=== PATIENT | male | born 1965 | race African-American/Black ===

== ENCOUNTER 2018-02-28 08:53 | Inpatient (IN) | payer SELFPAY ==
[2018-02-28] MEDS ORDERED: TRAMADOL HCL 50 MG TAB PO PRN (10:01)
[2018-02-28] MEDS ORDERED: MORPHINE 2 MG/ML SYR IV PRN (10:01)
[2018-02-28] MEDS ORDERED: ACETAMINOPHEN 500 MG TAB PO PRN (10:01)
[2018-02-28] MEDS ORDERED: ONDANSETRON 4 MG/2 ML VIAL IV PRN (10:01)
--- NOTE | 2018-02-28 10:04 | ER ---
Nurse's Notes [facility] Name: Darrick Conde Age: 52 yrs Sex: Male : 1965 Arrival Date: 02/28/2018 Time: 08:55 Bed 19 Private MD: Diagnosis: Cellulitis of left lower limb Presentation: 02/28 09:05 Presenting complaint: Patient states: left ankle radiating up leg that began yesterday. aa5 Denies swelling, denies known injury. Transition of care: patient was not received from another setting of care. Onset of symptoms was February 2018. Risk Assessment: Do you want to hurt yourself or someone else? Patient reports no desire to harm self or others. Initial Sepsis Screen: Does the patient meet any 2 criteria? No. Patient's initial sepsis screen is negative. Does the patient have a suspected source of infection? No. Patient's initial sepsis screen is negative. Care prior to arrival: None. 09:05 Method Of Arrival: Ambulatory aa5 09:05 Acuity: TA 3 aa5 Triage Assessment: 09:30 General: Appears in no apparent distress. uncomfortable, Behavior is calm, cooperative, hj appropriate for age. Pain: Complains of pain in left leg and anterior aspect of left ankle and left melo and left medial ankle Pain currently is 9 out of 10 on a pain scale. EENT: No signs and/or symptoms were reported regarding the EENT system. Neuro: Level of Consciousness is awake, alert, obeys commands, Oriented to person, place, time, situation, Appropriate for age. Cardiovascular: Capillary refill < 3 seconds Patient's skin is warm and dry. Respiratory: Airway is patent Respiratory effort is even, unlabored, Respiratory pattern is regular, symmetrical. GI: No signs and/or symptoms were reported involving the gastrointestinal system. : No signs and/or symptoms were reported regarding the genitourinary system. Derm: swelling and warmth to touch L leg; Reports pain that is 9 out of 10 on a pain scale. Musculoskeletal: Reports pain in left leg. Historical: - Allergies: 09:07 No Known Allergies; aa5 - Home Meds: 09:07 None [Active]; aa5 - PMHx: 09:07 None; aa5 - PSHx: 09:07 None; aa5 - Immunization history:: Adult Immunizations up to date. - Social history:: Smoking status: Patient/guardian denies using tobacco. - Ebola Screening: : No symptoms or risks identified at this time. Screenin:30 Abuse screen: Denies threats or abuse. Denies injuries from another. Nutritional hj screening: No deficits noted. Tuberculosis screening: No symptoms or risk factors identified. Fall Risk Secondary diagnosis (15 points) leg pain and swelling. Assessment: 09:30 Reassessment: see anjel for assessment;. hj 10:46 Reassessment: Patient and/or family updated on plan of care and expected duration. Pain hj level reassessed. Patient is alert, oriented x 3, equal unlabored respirations, skin warm/dry/pink. US tech in room for leg USl;. Vital Signs: 09:07 BP 132 / 86; Pulse 94; Resp 20 S; Temp 97.4(TE); Pulse Ox 98% on R/A; Weight 136.08 kg aa5 (R); Height 5 ft. 11 in. (180.34 cm) (R); Pain 9/10; 09:07 Body Mass Index 41.84 (136.08 kg, 180.34 cm) aa5 ED Course: 08:55 Patient arrived in ED. rg4 09:06 Triage completed. aa5 09:06 Arm band placed on. aa5 09:15 Kourtney Ambrosio FNP-C is PSYCHIATRICP. snw 09:15 Trevon Martines MD is Attending Physician. snw 09:22 Ace Cesar RN is Primary Nurse. hj 09:30 Patient has correct armband on for positive identification. Placed in gown. Bed in low hj position. Call light in reach. Side rails up X 1. 09:58 EKG done, by coding technician. reviewed by Kourtney ADAME. dt2 10:03 Francesco Westbrook DO is Hospitalizing Provider. snw 10:05 Inserted saline lock: 22 gauge in left antecubital area, using aseptic technique. Blood hj collected. 10:05 Initial lab(s) drawn, by me, sent to lab. First set of blood cultures drawn by me. hj 10:10 Radiology exam delayed due to NURSE TO CALL U/S WHEN PT IS READY. hr 10:17 X-ray completed. Portable x-ray completed in exam room. Patient tolerated procedure sw well. 10:20 Second set of blood cultures drawn. hj 10:48 Ultrasound completed. Patient tolerated well. hr 11:31 No provider procedures requiring assistance completed. Patient admitted, IV remains in hj place. intact. Administered Medications: 10:01 CANCELLED (other intervention used): Clindamycin 600 mg IVPB once over 30 mins; (mix in snw 50 mL) 10:35 Drug: Phenergan 12.5 mg Route: IVP; Site: left antecubital; hj 11:22 Follow up: Response: No adverse reaction; Nausea is decreased hj 10:36 Drug: NS 0.9% (30 ml/kg) 30 ml/kg Route: IV; Rate: bolus; Site: left antecubital; hj 11:32 Follow up: IV Status: Infusion continued upon admission; IV Intake: 3000ml hj 10:36 Drug: morphine 4 mg Route: IVP; Site: left antecubital; hj 11:23 Follow up: Response: No adverse reaction; Pain is decreased hj 10:36 Drug: Zosyn 3.375 grams Route: IVPB; Infused Over: 60 mins; Site: left antecubital; hj 11:22 Follow up: IV Status: Completed infusion hj 11:03 Drug: Potassium Chloride 40 mEq Route: PO; hj 11:22 Follow up: Response: No adverse reaction hj 11:23 Not Given (relayed to start on the floor upon admit;): vancoMYCIN 1 grams IVPB once hj over 2 hrs Point of Care Testing: Blood Glucose: 09:30 Blood Glucose: 154 mg/dL; Ranges: Intake: 11:32 IV: 3000ml; Total: 3000ml. Outcome: 10:04 Decision to Hospitalize by Provider. snw 11:31 Admitted to Tele accompanied by tech, via wheelchair, room 404, with chart, Report hj called to ANTONY Castro 11:31 Condition: stable 11:31 Instructed on the need for admit, Demonstrated understanding of instructions. 11:32 Patient left the ED. Signatures: Kourtney Ambrosio, AGRICULTURAL PRODUCE PACKER-C AGRICULTURAL PRODUCE PACKER-Csnw Sisi Beckwith Audri RN RN aa5 Isa Mccullough Henry, RN RN hj Garcia, Rubi rg4 Tessy Uribe
--- NOTE | 2018-02-28 10:04 | EDPHYS ---
Physician Documentation [facility] Name: Darrick Conde Age: 52 yrs Sex: Male : 1965 Arrival Date: 02/28/2018 Time: 08:55 Bed 19 Private MD: ED Physician Trevon Martines HPI: 02/28 09:47 This 52 yrs old Black Male presents to ER via Ambulatory with complaints of Leg Pain. snw 09:47 The patient presents with decreased range of motion, pain, swelling, redness and warmth snw to left lower leg. Associated signs and symptoms: Pertinent positives: swelling, warmth, leg feels on fire. Severity of symptoms: At their worst the symptoms were moderate, severe. The patient has not experienced similar symptoms in the past. The patient has not recently seen a physician. states 2 days ago he had a stomach virus and then his left ankle began hurting, swelling, no trauma. Historical: - Allergies: 09:07 No Known Allergies; aa5 - Home Meds: 09:07 None [Active]; aa5 - PMHx: 09:07 None; aa5 - PSHx: 09:07 None; aa5 - Immunization history:: Adult Immunizations up to date. - Social history:: Smoking status: Patient/guardian denies using tobacco. - Ebola Screening: : No symptoms or risks identified at this time. ROS: 09:47 Constitutional: Negative for fever, chills, and weight loss, Eyes: Negative for injury, snw pain, redness, and discharge, ENT: Negative for injury, pain, and discharge, Neck: Negative for injury, pain, and swelling, Cardiovascular: Negative for chest pain, palpitations, and edema, Respiratory: Negative for shortness of breath, cough, wheezing, and pleuritic chest pain, Back: Negative for injury and pain, : Negative for injury, bleeding, discharge, and swelling, Skin: Negative for injury, rash, and discoloration, Neuro: Negative for headache, weakness, numbness, tingling, and seizure. 09:47 Abdomen/GI: Positive for nausea, vomiting, and diarrhea. 09:47 MS/extremity: Positive for pain, swelling, tenderness, warmth, of the anterior aspect of left ankle and left medial ankle. Exam: 09:46 Constitutional: This is a well developed, well nourished patient who is awake, alert, snw and in no acute distress. Head/Face: Normocephalic, atraumatic. Eyes: Pupils equal round and reactive to light, extra-ocular motions intact. Lids and lashes normal. Conjunctiva and sclera are non-icteric and not injected. Cornea within normal limits. Periorbital areas with no swelling, redness, or edema. ENT: Nares patent. No nasal discharge, no septal abnormalities noted. Tympanic membranes are normal and external auditory canals are clear. Oropharynx with no redness, swelling, or masses, exudates, or evidence of obstruction, uvula midline. Mucous membranes moist. Neck: Trachea midline, no thyromegaly or masses palpated, and no cervical lymphadenopathy. Supple, full range of motion without nuchal rigidity, or vertebral point tenderness. No Meningismus. Chest/axilla: Normal chest wall appearance and motion. Nontender with no deformity. No lesions are appreciated. Cardiovascular: Regular rate and rhythm with a normal S1 and S2. No gallops, murmurs, or rubs. Normal PMI, no JVD. No pulse deficits. Respiratory: Lungs have equal breath sounds bilaterally, clear to auscultation and percussion. No rales, rhonchi or wheezes noted. No increased work of breathing, no retractions or nasal flaring. Back: No spinal tenderness. No costovertebral tenderness. Full range of motion. Neuro: Awake and alert, GCS 15, oriented to person, place, time, and situation. Cranial nerves II-XII grossly intact. Motor strength 5/5 in all extremities. Sensory grossly intact. Cerebellar exam normal. Normal gait. Psych: Awake, alert, with orientation to person, place and time. Behavior, mood, and affect are within normal limits. 09:46 Abdomen/GI: Inspection: obese Bowel sounds: normal, Palpation: abdomen is soft and non-tender. 09:46 Skin: Appearance: normal except for affected area, cellulitis, that is moderate, confluent, on the left medial ankle, left melo and anterior aspect of left ankle. Vital Signs: 09:07 BP 132 / 86; Pulse 94; Resp 20 S; Temp 97.4(TE); Pulse Ox 98% on R/A; Weight 136.08 kg aa5 (R); Height 5 ft. 11 in. (180.34 cm) (R); Pain 03/04; 09:07 Body Mass Index 41.84 (136.08 kg, 180.34 cm) aa5 MDM: 09:15 Patient medically screened. snw 09:50 Data reviewed: vital signs, nurses notes. Data interpreted: Pulse oximetry: on room air snw is 98 %. Interpretation: normal. Counseling: I had a detailed discussion with the patient and/or guardian regarding: the historical points, exam findings, and any diagnostic results supporting the discharge/admit diagnosis, the presence of at least one elevated blood pressure reading (>120/80) during this emergency department visit, the need for further work-up and treatment in the hospital. Physician consultation: Francesco Westbrook DO was called at 09:50, was contacted at 09:50, regarding admission, to the medical/surgical unit. 02/28 09:45 Order name: Basic Metabolic Panel; Complete Time: 10:59 snw 02/28 09:45 Order name: Blood Culture Adult (2) snw 02/28 09:45 Order name: C-Reactive Protein; Complete Time: 10:59 snw 02/28 09:45 Order name: CBC with Diff; Complete Time: 11:31 snw 02/28 09:45 Order name: Ckmb; Complete Time: 10:59 snw 02/28 09:45 Order name: CPK; Complete Time: 10:59 snw 02/28 09:45 Order name: Lactate; Complete Time: 10:41 snw 02/28 09:45 Order name: LFT's; Complete Time: 10:59 snw 02/28 09:45 Order name: Procalcitonin; Complete Time: 11:31 snw 02/28 09:45 Order name: Protime (+inr); Complete Time: 10:42 snw 02/28 09:45 Order name: Ptt, Activated; Complete Time: 10:42 snw 02/28 09:45 Order name: Sed Rate; Complete Time: 11:31 snw 02/28 09:45 Order name: Uric Acid; Complete Time: 10:59 snw 02/28 10:07 Order name: Basic Metabolic Panel EDMS 02/28 10:07 Order name: Basic Metabolic Panel EDMS 02/28 10:07 Order name: Basic Metabolic Panel EDMS 02/28 10:07 Order name: Basic Metabolic Panel EDMS 02/28 10:07 Order name: Basic Metabolic Panel EDMS 02/28 10:07 Order name: Basic Metabolic Panel EDMS 02/28 10:07 Order name: CBC with Automated Diff EDMS 02/28 10:07 Order name: CBC with Automated Diff EDMS 02/28 10:07 Order name: CBC with Automated Diff EDMS 02/28 10:07 Order name: CBC with Automated Diff EDMS 02/28 10:07 Order name: CBC with Automated Diff EDMS 02/28 10:07 Order name: CBC with Automated Diff EDMS 02/28 10:07 Order name: Magnesium EDMS 02/28 10:07 Order name: Magnesium EDMS 02/28 10:07 Order name: Magnesium EDMS 02/28 10:07 Order name: Magnesium EDMS 02/28 10:07 Order name: Magnesium EDMS 02/28 09:45 Order name: Accucheck; Complete Time: 10:11 snw 02/28 09:45 Order name: Cardiac monitoring; Complete Time: 09:51 snw 02/28 09:45 Order name: EKG - Nurse/Tech; Complete Time: 10:11 snw 02/28 09:45 Order name: IV Saline Lock - Large Bore; Complete Time: 10:11 snw 02/28 09:45 Order name: Labs collected and sent; Complete Time: 10:11 snw 02/28 09:45 Order name: O2 Per Protocol; Complete Time: 09:47 snw 02/28 09:45 Order name: O2 Sat Monitoring; Complete Time: 09:47 snw 02/28 09:45 Order name: US Extremity Venous Unilateral Ltd snw 02/28 10:02 Order name: Tib Fib Left XRAY snw 02/28 10:06 Order name: CONS Pharmacy Consult EDMS 02/28 10:07 Order name: Regular EDMS 02/28 10:07 Order name: Magnesium EDMS 02/28 11:03 Order name: US; Complete Time: 11:03 EDMS 02/28 11:31 Order name: RAD; Complete Time: 11:31 EDMS Administered Medications: 10:01 CANCELLED (other intervention used): Clindamycin 600 mg IVPB once over 30 mins; (mix in snw 50 mL) 10:35 Drug: Phenergan 12.5 mg Route: IVP; Site: left antecubital; hj 11:22 Follow up: Response: No adverse reaction; Nausea is decreased hj 10:36 Drug: NS 0.9% (30 ml/kg) 30 ml/kg Route: IV; Rate: bolus; Site: left antecubital; hj 11:32 Follow up: IV Status: Infusion continued upon admission; IV Intake: 3000ml hj 10:36 Drug: morphine 4 mg Route: IVP; Site: left antecubital; hj 11:23 Follow up: Response: No adverse reaction; Pain is decreased hj 10:36 Drug: Zosyn 3.375 grams Route: IVPB; Infused Over: 60 mins; Site: left antecubital; hj 11:22 Follow up: IV Status: Completed infusion hj 11:03 Drug: Potassium Chloride 40 mEq Route: PO; hj 11:22 Follow up: Response: No adverse reaction hj 11:23 Not Given (relayed to start on the floor upon admit;): vancoMYCIN 1 grams IVPB once hj over 2 hrs Point of Care Testing: Blood Glucose: 09:30 Blood Glucose: 154 mg/dL; Ranges: Critical Glucose Levels:Adult <50 mg/dl or >400 mg/dl <40 mg/dl or >180 mg/dl Disposition: 13:57 Co-signature as Attending Physician, Trevon Martines MD I agree with the assessment and kdr plan of care. Disposition: 02/28/18 10:04 Hospitalization ordered by Francesco Westbrook for Inpatient Admission. Preliminary diagnosis is Cellulitis of left lower limb. - Bed requested for Telemetry/MedSurg (Inpatient). - Status is Inpatient Admission. hj - Condition is Stable. - Problem is new. - Symptoms are unchanged. UTI on Admission? No Signatures: Dispatcher [employer] EDMS Avril Young Kevin, MD MD [facility] Kourtney Ambrosio, WORKFORCE MANAGEMENT COORDINATOR-C WORKFORCE MANAGEMENT COORDINATOR-Csnw Jesika Vaughn RN RN aa5 Ace Cesar, ANTONY RN Corrections: (The following items were deleted from the chart) 10:01 09:45 Clindamycin 600 mg IVPB once over 30 mins; (mix in 50 mL) ordered. snw snw 10:01 10:01 Clindamycin 600 mg IVPB once over 30 mins; (mix in 50 mL) ordered. snw snw 11:08 10:04 Hospitalization Ordered by Francesco Westbrook DO for Inpatient Admission. Preliminary bd diagnosis is Cellulitis of left lower limb. Bed requested for Telemetry/MedSurg (Inpatient). Status is Inpatient Admission. Condition is Stable. Problem is new. Symptoms are unchanged. UTI on Admission? No. snw 11:32 11:08 02/28/2018 10:04 Hospitalization Ordered by Francesco Westbrook DO for Inpatient hj Admission. Preliminary diagnosis is Cellulitis of left lower limb. Bed requested for Telemetry/MedSurg (Inpatient). Status is Inpatient Admission. Condition is Stable. Problem is new. Symptoms are unchanged. UTI on Admission? No. bd
[2018-02-28] MEDS ORDERED: PROMETHAZINE 25 MG/ML VIAL ONE (10:27)
[2018-02-28] MEDS ORDERED: PIPER/TAZO/NS 3.375gm 3.375 GM/100 ML BAG ONE (10:28)
[2018-02-28] MEDS ORDERED: NA CHLORIDE 0.9% 3,000 ML ONE (10:28)
[2018-02-28] MEDS ORDERED: VANCOMYCIN 1 GM/250 ML BAG ONE (10:28)
[2018-02-28] MEDS ORDERED: MORPHINE 4 MG/ML SYR ONE (10:28)
[2018-02-28 10:32] LABS: Protime INR 1.3
[2018-02-28 10:44] LABS: Absolute Lymphocytes (CBC) 1.2 K/uL (0.7-4.9); Absolute Monocytes 1.3 K/uL (0.1-1.3); Absolute Neutrophil 8.3 K/uL (1.8-8.0); Basophils % 0.2 % (0-1.3); Eosinophils % 0.3 % (0-4.4); Lymphocytes % 11.3 % (15.3-44.8); MCV 91.9 fL (80-100); MPV 7.2 fL (7.6-11.3); Monocytes % 12.2 % (3.3-12.3); RBC Red Blood Cell Count 4.35 M/uL (4.33-5.43)
[2018-02-28 10:55] LABS: Albumin 3.1 g/dL (3.4-5.0); Bilirubin Direct 0.2 mg/dL (0-0.2); Bilirubin Total 0.8 mg/dL (0.2-1.0); CKMB Creatine Kinase MB 1.3 ng/mL (0.3-3.6); Protein, Total 7.7 g/dL (6.4-8.2)
[2018-02-28] MEDS: NA CHLORIDE 0.9% 1,000 ML IV SCH ×3 (11:00→20:54)
--- NOTE | 2018-02-28 11:02 | RAD REPORT ---
EXAM DESCRIPTION: US - Extremity Venous Uni Ltd - 02/28/2018 10:51 am CLINICAL HISTORY: Swelling;Pain Leg swelling and edema. COMPARISON: No comparisons FINDINGS: Left lower extremity venous system was interrogated with Doppler technique. Normal flow, c ompressibility and augmentation was noted. There is no DVT present.3 x 2 cm popliteal cyst. IMPRESSION: No evidence of left lower extremity deep venous thrombosis.
[2018-02-28] MEDS ORDERED: POTASSIUM CL SA 10 MEQ TAB PO ONE (11:16)
--- NOTE | 2018-02-28 11:22 | P.HP ---
Certification for Inpatient Patient admitted to: Inpatient With expected LOS: >2 Midnights Patient will require the following post-hospital care: None Practitioner: I am a practitioner with admitting privileges, knowledge of patient current condition, hospital course, and medical plan of care. Services: Services provided to patient in accordance with Admission requirements found in Title 42 Section 412.3 of the Code of Federal Regulations Patient History Date of Service: 02/28/18 Primary Care Provider: None Reason for admission: Left lower extremity pain, edema History of Present Illness: 52-year-old male presented to the emergency room with left lower extremity pain and edema. Patient reports that he started to notice increasing edema, pain and erythema to the left lower extremity yesterday. He denied any fever, chills. No nausea vomiting noted. No chest pain or shortness of breath also noted. Patient reports no recent exposure to insects. Patient came to the ER for further evaluation. In the ER patient evaluated. Erythema noted to the left lower extremity including edema. White count elevated at 11.6, hemoglobin 13.9, sodium 138, potassium 3.0. BUN of 13, creatinine 1.4 with a GFR of 64. Glucose 150. Lactic acid normal. CRP elevated. Pro calcitonin pending. Venous Doppler of the lower extremity unremarkable for DVT. A 3 x 2 cm popliteal cyst noted. X- rays pending at this time. Patient admitted for further treatment. When I saw the patient the ER, patient had noticeable erythema, swelling to the left lower extremity. No open areas were noted. Pain better controlled. Patient has no prior medical problems. Patient is obese. Allergies No Known Allergies Allergy (Unverified 02/28/18 10:25) Home medications list reviewed: No - Past Medical/Surgical History Diabetic: No -: Obesity Past Surgical History: Patient denies surgical history Psychosocial/ Personal History: Patient is single. He has 2 children. 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 - Family History Mother -: Cancer (Cancer of unknown etiology likely ovarian and lung.) - Social History Smoking Status: Never smoker Alcohol use: Yes CD- Drugs: No Caffeine use: No Place of Residence: Home Review of Systems General: As per HPI Eyes: Unremarkable ENT: Unremarkable Respiratory: Unremarkable Cardiovascular: Unremarkable Gastrointestinal: Unremarkable Genitourinary: Unremarkable Musculoskeletal: Leg Pain, As per HPI Integumentary: As per HPI Neurological: Unremarkable Lymphatics: Unremarkable Physical Examination - Physical Exam General: Alert, In no apparent distress, Oriented x3, Cooperative HEENT: Atraumatic, Normocephalic, PERRLA, Mucous membr. moist/pink Neck: Supple, No Thyromegaly Respiratory: Clear to auscultation bilaterally, Normal air movement Cardiovascular: Normal pulses, Regular rate/rhythm Gastrointestinal: Normal bowel sounds, Soft and benign, Non-distended, No tenderness, No masses, No rebound, No guarding Musculoskeletal: Erythema (to the LLE), Tenderness (to the LLE), Warmth (to the LLE) Integumentary: Tenderness/swelling (The left lower extremity erythema, swelling and pain. No open sores noted.) Neurological: Normal speech, Normal strength at 5/5 x4 extr, Normal tone, Normal affect Assessment and Plan - Plan Impression: Left lower extremity cellulitis Mild renal insufficiency likely dehydration Hypokalemia Obesity Plan: Patient with left lower extremity cellulitis. DVT has been ruled out. Patient has been started on IV vancomycin and Zosyn. Will continue to monitor closely and adjust. Will also start IV fluids due to suspected dehydration. Will provide medication for pain. Will monitor electrolytes and replace appropriately. Patient also has a 3 x 2 cm popliteal cyst. Lifestyle modification education. Anticipate discharge in the next 2-3 days. Will start DVT prophylaxis. Discharge Plan: Home Plan to discharge in: 72 Hours - Advance Directives Does patient have a Living Will: No Does patient have a Durable POA for Healthcare: No - Code Status/Comfort Care Code Status Assessed: Yes Time Spent Managing Pts Care (In Minutes): 55
--- NOTE | 2018-02-28 11:31 | RAD REPORT ---
EXAM DESCRIPTION: RAD - Tib Fib Left - 02/28/2018 10:20 am CLINICAL HISTORY: Pain;Swelling COMPARISON: No comparisons FINDINGS: Prominent soft tissue swelling is seen along the medial malleolus. Prominent calcification is seen along the mid interosseous membrane. No acute fracture dislocation. Posterior calcaneal spur noted.
[2018-02-28] MEDS ORDERED: VANCOMYCIN/NS 1 gm 1 GM/250 ML BAG IV ONE (12:00)
[2018-02-28 12:25] VITALS: BMI 41.8
[2018-02-28] MEDS: HYDROCODONE/APAP 7.5/325 MG TAB PO PRN ×2 (13:20→20:53)
[2018-02-28] MEDS: PIPER/TAZO/NS 3.375gm 3.375 GM/100 ML BAG IVPB SCH (16:18)
[2018-02-28] MEDS ORDERED: ENOXAPARIN 40 MG/0.4 ML SQ SCH (17:00)
[2018-02-28 21:30] LABS: Urine Appearance CLEAR; Urine Bilirubin NEGATIVE (NEG); Urine Blood 1+ (NEG); Urine Color YELLOW; Urine Glucose NEGATIVE (NEG); Urine Protein NEGATIVE (NEG); Urine Specific Gravity 1.015 (1.005-1.030)
[2018-02-28 22:16] LABS: Urine Microscopic Reflex ORDER UMIC
[2018-02-28 22:22] LABS: Urine Bacteria <20 /HPF (NONE SEEN); Urine Culture Reflex Order REFLEXED
[2018-03-01] MEDS: PIPER/TAZO/NS 3.375gm 3.375 GM/100 ML BAG IVPB SCH ×2 (01:50→09:24)
[2018-03-01 03:54] VITALS: O2SAT 98
[2018-03-01 05:52] LABS: Absolute Lymphocytes (CBC) 1.5 K/uL (0.7-4.9); Absolute Monocytes 1.2 K/uL (0.1-1.3); Absolute Neutrophil 4.9 K/uL (1.8-8.0); Basophils % 0.1 % (0-1.3); Hematocrit 36.2 % (39.6-49.0); Lymphocytes % 19.9 % (15.3-44.8); MCH 32.5 pg (27.0-35.0); MCV 92.8 fL (80-100); MPV 6.8 fL (7.6-11.3); Monocytes % 15.2 % (3.3-12.3)
[2018-03-01] MEDS ORDERED: VANCOMYCIN 2 GM in NA CHLORIDE 0.9% 500 ML IVPB SCH (06:00)
[2018-03-01 06:05] LABS: Magnesium 2.3 mg/dL (1.8-2.4); Potassium 3.6 mmol/L (3.5-5.1)
[2018-03-01] MEDS ORDERED: PANTOPRAZOLE 40MG TABLET PO SCH (06:30)
[2018-03-01] MEDS: NA CHLORIDE 0.9% 1,000 ML IV SCH (06:42)
[2018-03-01 07:11] LABS: Blood Morphology Comment NOT SEEN (NOT SEEN); Platelet Estimate ADEQ
--- NOTE | 2018-03-01 07:38 | EKG ---
Test Date: 2018-02-28 Test Time: 09:54:12 Air Analysis Technician: JEANETH MEASUREMENT RESULTS: Intervals: Rate: 95 OK: 182 QRSD: 114 QT: 352 QTc: 442 [place]: P: 47 OK: 182 QRS: 21 T: 12 INTERPRETIVE STATEMENTS: Normal sinus rhythm Possible Left atrial enlargement Nonspecific T wave abnormality Abnormal ECG No previous ECG available for comparison Electronically Signed On 03-01-18 07:34:37 CDT by Michele Somers
--- NOTE | 2018-03-01 08:46 | P.DS ---
Admission Date: 02/28/18 Discharge Date: 03/01/18 Primary Care Provider: None Disposition: ROUTINE DISCHARGE Discharge Condition: GOOD Reason for Admission: Left lower extremity pain, edema Procedures: Medical Problem List: Left lower extremity cellulitis 3 x 2 cm popliteal left cyst noted Mild renal insufficiency likely dehydration, resolved Hypokalemia resolved Obesity, BMI 41.8 Brief History of Present Illness: 52-year-old male presented to the emergency room with left lower extremity pain and edema. Patient reports that he started to notice increasing edema, pain and erythema to the left lower extremity yesterday. He denied any fever, chills. No nausea vomiting noted. No chest pain or shortness of breath also noted. Patient reports no recent exposure to insects. Patient came to the ER for further evaluation. In the ER patient evaluated. Erythema noted to the left lower extremity including edema. White count elevated at 11.6, hemoglobin 13.9, sodium 138, potassium 3.0. BUN of 13, creatinine 1.4 with a GFR of 64. Glucose 150. Lactic acid normal. CRP elevated. Pro calcitonin pending. Venous Doppler of the lower extremity unremarkable for DVT. A 3 x 2 cm popliteal cyst noted. X- rays pending at this time. Patient admitted for further treatment. When I saw the patient the ER, patient had noticeable erythema, swelling to the left lower extremity. No open areas were noted. Pain better controlled. Patient has no prior medical problems. Patient is obese. Hospital Course: Patient presented with left lower extremity cellulitis. 3 x 2 cm left popliteal cyst noted. Patient admitted for treatment. Patient received IV antibiotic therapy. This improved with medical therapy. At discharge patient will continue with Bactrim DS 1 pill twice daily and doxycycline 100 mg 1 pill twice daily for 10 days. Patient is to elevate leg when sitting or lying. Patient will follow up with a PCP to establish care and to follow up this hospitalization. Patient had mild renal insufficiency with hypokalemia likely from dehydration. Patient received IV fluids. This resolved. Recommendation is to recheck BMP in 1-2 weeks to monitor his progress. Patient with obesity. Lifestyle modification education will be provided. Vital Signs/Physical Exam: Temp Pulse Resp BP Pulse Ox 98.3 F 89 18 145/88 H 95 03/01/18 08:00 03/01/18 08:00 03/01/18 08:00 03/01/18 08:00 03/01/18 08:00 General: Alert, In no apparent distress, Oriented x3, Cooperative HEENT: Atraumatic Neck: Supple Respiratory: Clear to auscultation bilaterally, Normal air movement Cardiovascular: Normal pulses, Regular rate/rhythm Gastrointestinal: Normal bowel sounds, Soft and benign, Non-distended, No tenderness, No masses, No rebound, No guarding Musculoskeletal: No erythema, No tenderness, No warmth Integumentary: No tenderness/swelling, No erythema, No warmth, No cyanosis Neurological: Normal speech, Normal strength at 5/5 x4 extr, Normal tone, Normal affect Laboratory Data at Discharge: WBC 7.7 K/uL (4.3-10.9) D 03/01/18 05:32 Hgb 12.7 g/dL (13.6-17.9) L 03/01/18 05:32 Hct 36.2 % (39.6-49.0) L 03/01/18 05:32 Plt Count 207 K/uL (152-406) 03/01/18 05:32 PT 15.4 SECONDS (9.5-12.5) H 02/28/18 10:08 INR 1.30 02/28/18 10:08 APTT 33.7 SECONDS (24.3-36.9) 02/28/18 10:08 Sodium 139 mmol/L (136-145) 03/01/18 05:32 Potassium 3.6 mmol/L (3.5-5.1) 03/01/18 05:32 BUN 16 mg/dL (7-18) 03/01/18 05:32 Creatinine 1.20 mg/dL (0.55-1.3) 03/01/18 05:32 Glucose 124 mg/dL (74-106) H 03/01/18 05:32 Uric Acid 7.0 mg/dL (3.5-7.2) 02/28/18 10:05 Magnesium 2.3 mg/dL (1.8-2.4) 03/01/18 05:32 Total Bilirubin 0.8 mg/dL (0.2-1.0) 02/28/18 10:05 AST 25 U/L (15-37) 02/28/18 10:05 ALT 30 U/L (12-78) 02/28/18 10:05 Alkaline Phosphatase 60 U/L (45-117) 02/28/18 10:05 Home Medications: Doxycycline Hyclate 100 mg PO BID #20 tablet 03/01/18 Sulfamethoxazole/Trimethoprim [Bactrim Ds Tablet] 1 each PO BID #20 tablet 03/01 New Medications: Doxycycline Hyclate 100 mg PO BID #20 tablet Sulfamethoxazole/Trimethoprim [Bactrim Ds Tablet] 1 each PO BID #20 tablet Patient Discharge Instructions: 1. Patient will need a follow up with a PCP to establish care and follow up this hospitalization. 2. Patient presented with left lower extremity cellulitis. 3 x 2 cm left popliteal cyst noted. Patient admitted for treatment. Patient received IV antibiotic therapy. This improved with medical therapy. At discharge patient will continue with Bactrim DS 1 pill twice daily and doxycycline 100 mg 1 pill twice daily for 10 days. Patient is to elevate leg when sitting or lying. Patient will follow up with a PCP to establish care and to follow up this hospitalization. 3. Patient had mild renal insufficiency with hypokalemia likely from dehydration. Patient received IV fluids. This resolved. Recommendation is to recheck BMP in 1-2 weeks to monitor his progress. Recommendation to increase oral intake to prevent dehydration. 4. Patient with obesity. Lifestyle modification education will be provided. Diet: AHA Activity: Ad frieda Time spent managing pt's care (in minutes): 55
[2018-03-01] MEDS ORDERED: VANCOMYCIN 1 GM in NA CHLORIDE 0.9% 500 ML IVPB SCH (09:00)
[2018-03-01 12:39] VITALS: BP 141/87; TEMP 98.1
== END 2018-03-01 13:38 | disposition home or self-care (01) | DRG 603 ==
LOC: ER 08:53 → ERHOLD 10:01 → 4TH 11:22
PROVIDERS: ADMIT Family Medicine; ATTEND Family Medicine
DX: L03.116 Cellulitis of left lower limb (principal); Z68.41 Body mass index [BMI] 40.0-44.9, adult; M71.22 Synovial cyst of popliteal space [Baker], left knee; N28.9 Disorder of kidney and ureter, unspecified; E86.0 Dehydration; E87.6 Hypokalemia; E66.9 Obesity, unspecified
CPT/HCPCS: 36415; 80048; 80076; 81003; 81015; 82550; 82553; 82962; 83605; 83735; 84145; 84550; 85025; 85610; 85652; 85730; 86140; 87040; 87086; 87088; 93005; 93971; 96365; 96368; 96375; 99285; J1650; J2543; J2550; J3370; J7030

== ENCOUNTER 2018-09-27 05:20 | Emergency (ER) | payer BC, SELFPAY ==
--- OUTSIDE RECORDS SUMMARY | 2018-09-27 05:22 | XMS REPORT ---
:1965 Author Organization eClinicalWorks Care Team Providers Name Role Phone [facility] Provider Role Unavailable Allergies, Adverse Reactions, Alerts Substance Reaction Event Type N.K.D.A. Info Not Available Non Drug Allergy Problems Problem Type Condition Code Onset Dates Condition Status Assessment Cellulitis of left lower extremity L03.116 Active Problem Stasis edema of left lower I87.302 Active extremity Assessment Stasis edema of left lower I87.302 Active extremity Assessment Elevated BP without diagnosis of R03.0 Active hypertension Medications No Known Medications Results No Known Results Summary Purpose eClinicalWorks Submission
--- OUTSIDE RECORDS SUMMARY | 2018-09-27 05:23 | XMS REPORT ---
:1965 [facility] Address [address] [place]. [address] [place] [id number] Care Team Providers Name Role Phone Unavailable Unavailable Unavailable Problems This patient has no known problems. Allergies, Adverse Reactions, Alerts This patient has no known allergies or adverse reactions. Medications This patient has no known medications.
[2018-09-27] MEDS ORDERED: CEFTRIAXONE 250 MG/VIAL ONE (05:50)
[2018-09-27] MEDS ORDERED: AZITHROMYCIN 250 MG TAB ONE (05:52)
--- NOTE | 2018-09-27 05:56 | ER ---
Nurse's Notes [facility] Name: Darrick Conde Age: 52 yrs Sex: Male : 1965 Arrival Date: 09/27/2018 Time: 05:21 Bed 8 Private MD: Diagnosis: Sexually transmitted chlamydial infection of other sites Presentation: 09/27 05:30 Presenting complaint: Patient states: that he is having itching on his penis and bumps fc all over it. Started 5 days ago. Thinks his girlfriend is sleeping around. Transition of care: patient was not received from another setting of care. Onset of symptoms was September 23, 2018. Risk Assessment: Do you want to hurt yourself or someone else? Patient reports no desire to harm self or others. Initial Sepsis Screen: Does the patient meet any 2 criteria? No. Patient's initial sepsis screen is negative. Does the patient have a suspected source of infection? No. Patient's initial sepsis screen is negative. Care prior to arrival: None. 05:30 Method Of Arrival: Ambulatory fc 05:30 Acuity: TA 4 fc Historical: - Allergies: 05:33 No Known Allergies; fc 05:33 No Known Allergies; fc - Home Meds: 05:33 None [Active]; None [Active]; fc - PMHx: 05:33 None; None; fc - PSHx: 05:33 None; None; fc - Immunization history:: Last tetanus immunization: up to date Flu vaccine is up to date. - Social history:: Smoking status: Patient/guardian denies using tobacco, Patient/guardian denies using alcohol, street drugs, Patient/guardian denies using The patient lives with family. - Ebola Screening: : Patient negative for fever greater than or equal to 101.5 degrees Fahrenheit, and additional compatible Ebola Virus Disease symptoms Patient denies exposure to infectious person Patient denies travel to an Ebola-affected area in the 21 days before illness onset. - Family history:: not pertinent. Screenin:33 Abuse screen: Denies threats or abuse. Nutritional screening: No deficits noted. jd3 Tuberculosis screening: No symptoms or risk factors identified. Fall Risk Ambulatory Aid- None/Bed Rest/Nurse Assist (0 pts). Gait- Normal/Bed Rest/Wheelchair (0 pts) Mental Status- Oriented to own ability (0 pts). Total Britt Fall Scale indicates No Risk (0-24 pts). Assessment: 05:30 General: Appears in no apparent distress. uncomfortable, Behavior is calm, cooperative, jd3 appropriate for age. Pain: Denies pain. Neuro: Level of Consciousness is awake, alert, obeys commands, Oriented to person, place, time, situation, Appropriate for age. Cardiovascular: Denies chest pain, Capillary refill < 3 seconds Patient's skin is warm and dry. Respiratory: Airway is patent Respiratory effort is even, unlabored, Respiratory pattern is regular, symmetrical, Denies shortness of breath. GI: No signs and/or symptoms were reported involving the gastrointestinal system. : No signs and/or symptoms were reported regarding the genitourinary system. EENT: No signs and/or symptoms were reported regarding the EENT system. Derm: Skin is intact, Skin is dry, Skin is normal, Skin temperature is warm Reports itching bumps to skin around penis. Musculoskeletal: Circulation, motion, and sensation intact. Range of motion: intact in all extremities. 06:19 Reassessment: Patient appears in no apparent distress at this time. Patient and/or jd3 family updated on plan of care and expected duration. Pain level reassessed. Patient is alert, oriented x 3, equal unlabored respirations, skin warm/dry/pink. Vital Signs: 05:33 BP 144 / 93; Pulse 86; Resp 18; Temp 98.0(O); Pulse Ox 98% on R/A; Weight 131.54 kg fc (R); Height 5 ft. 11 in. (180.34 cm) (R); Pain 0/10; 05:33 Body Mass Index 40.45 (131.54 kg, 180.34 cm) ED Course: 05:21 Patient arrived in ED. am2 05:26 Kade Millard, ANTONY is Primary Nurse. jd3 05:28 Eric Arias MD is Attending Physician. ma2 05:32 Triage completed. 05:33 Patient has correct armband on for positive identification. Bed in low position. Call jd3 light in reach. Side rails up X 1. 05:33 Arm band placed on Patient placed in an exam room, on a stretcher. 06:20 No provider procedures requiring assistance completed. Patient did not have IV access jd3 during this emergency room visit. Administered Medications: 05:47 Drug: Rocephin (cefTRIAXone) 250 mg Route: IM; Site: left gluteus; jd3 06:14 Follow up: Response: No adverse reaction jd3 05:48 Drug: AZITHromycin 1 grams Route: PO; jd3 06:14 Follow up: Response: No adverse reaction jd3 Outcome: 05:55 Discharge ordered by . delma 06:20 Discharged to home ambulatory. jd3 06:20 Condition: stable 06:20 Discharge instructions given to patient, Instructed on discharge instructions, follow up and referral plans. medication usage, Demonstrated understanding of instructions, follow-up care, medications, Prescriptions given X 1. 06:20 Patient left the ED. jd3 Signatures: Jennifer Quiroz RN Mary Kay Smith Jonathon, RN RN jd3 Alzahri, Mohammad, MD MD ma2 Corrections: (The following items were deleted from the chart) 06:20 05:30 Derm: Skin is intact, Skin is dry, Skin is normal, Skin temperature is warm jd3 Reports itching bumps to penis. jd3
--- NOTE | 2018-09-27 05:56 | EDPHYS ---
Physician Documentation [facility] Name: Darrick Conde Age: 52 yrs Sex: Male : 1965 Arrival Date: 09/27/2018 Time: 05:21 Bed 8 Private MD: ED Physician Eric Arias HPI: 09/27 05:51 This 52 yrs old Black Male presents to ER via Ambulatory with complaints of Penile ma2 Problem. 05:51 The patient presents with Onset: The symptoms/episode began/occurred acutely, suddenly, ma2 1 day(s) ago. Modifying factors: the symptoms are aggravated by. Associated signs and symptoms: Pertinent positives: Pertinent negatives: diarrhea, fever, hematuria. Severity of symptoms: At their worst the symptoms were mild, in the emergency department the symptoms are unchanged. The patient has experienced similar episodes in the past. Historical: - Allergies: 05:33 No Known Allergies; fc 05:33 No Known Allergies; fc - Home Meds: 05:33 None [Active]; None [Active]; fc - PMHx: 05:33 None; None; fc - PSHx: 05:33 None; None; fc - Immunization history:: Last tetanus immunization: up to date Flu vaccine is up to date. - Social history:: Smoking status: Patient/guardian denies using tobacco, Patient/guardian denies using alcohol, street drugs, Patient/guardian denies using The patient lives with family. - Ebola Screening: : Patient negative for fever greater than or equal to 101.5 degrees Fahrenheit, and additional compatible Ebola Virus Disease symptoms Patient denies exposure to infectious person Patient denies travel to an Ebola-affected area in the 21 days before illness onset. - Family history:: not pertinent. ROS: 05:51 Constitutional: Negative for fever, chills, and weight loss, Cardiovascular: Negative ma2 for chest pain, palpitations, and edema, Respiratory: Negative for shortness of breath, cough, wheezing, and pleuritic chest pain, Abdomen/GI: Negative for abdominal pain, nausea, diarrhea, and constipation. 05:51 : Positive for penile discharge, has single non tender pstules , Negative for injury or acute deformity, small amounts, flank pain, burning with urination, foul smelling urine, testicular pain acute changes. Exam: 05:51 Constitutional: This is a well developed, well nourished patient who is awake, alert, ma2 and in no acute distress. Head/Face: Normocephalic, atraumatic. Chest/axilla: Normal chest wall appearance and motion. Nontender with no deformity. No lesions are appreciated. Cardiovascular: Regular rate and rhythm with a normal S1 and S2. No gallops, murmurs, or rubs. Normal PMI, no JVD. No pulse deficits. Respiratory: Lungs have equal breath sounds bilaterally, clear to auscultation and percussion. No rales, rhonchi or wheezes noted. No increased work of breathing, no retractions or nasal flaring. Abdomen/GI: Soft, non-tender, with normal bowel sounds. No distension or tympany. No guarding or rebound. No evidence of tenderness throughout. MS/ Extremity: Pulses equal, no cyanosis. Neurovascular intact. Full, normal range of motion. 05:51 : CVA tenderness, is absent, Male external genitalia: lesion, painless, penile discharge, tenderness, Sexual behavior: the patient is sexually active. Vital Signs: 05:33 BP 144 / 93; Pulse 86; Resp 18; Temp 98.0(O); Pulse Ox 98% on R/A; Weight 131.54 kg fc (R); Height 5 ft. 11 in. (180.34 cm) (R); Pain 0/10; 05:33 Body Mass Index 40.45 (131.54 kg, 180.34 cm) fc MDM: 05:28 Patient medically screened. nc2 05:51 Differential diagnosis: UTI, prostatitis, urethritis. Data reviewed: vital signs, ma2 nurses notes, lab test result(s). Counseling: I had a detailed discussion with the patient and/or guardian regarding: the historical points, exam findings, and any diagnostic results supporting the discharge/admit diagnosis, the presence of at least one elevated blood pressure reading (>120/80) during this emergency department visit, the need for outpatient follow up. Response to treatment: There is no appreciated change of the patient's symptoms at this time. 09/27 05:57 Order name: Urine Dipstick--Ancillary (enter results) cm6 09/27 05:57 Order name: Urine Dipstick-Ancillary EDMS 09/27 05:30 Order name: Urine Dipstick-Ancillary (obtain specimen); Complete Time: 05:53 ma2 Administered Medications: 05:47 Drug: Rocephin (cefTRIAXone) 250 mg Route: IM; Site: left gluteus; jd3 06:14 Follow up: Response: No adverse reaction jd3 05:48 Drug: AZITHromycin 1 grams Route: PO; jd3 06:14 Follow up: Response: No adverse reaction jd3 Disposition: 09/27/18 05:55 Discharged to Home. Impression: Sexually transmitted chlamydial infection of other sites. - Condition is Stable. - Discharge Instructions: Sexually Transmitted Disease, Sygb-ox-Lapr. - Prescriptions for Doxycycline Hyclate 100 mg Oral Tablet - take 1 tablet by ORAL route every 12 hours; 20 tablet. - Work release form, Medication Reconciliation Form, Thank You Letter, Antibiotic Education, Prescription Opioid Use form. - Follow up: Private Physician; When: Tomorrow; Reason: Continuance of care. Signatures: Dispatcher [employer] EDJennifer Gorman RN RN fc Davies, Jonathon, RN RN jd3 Alzahri, Mohammad, MD MD ma2 Corrections: (The following items were deleted from the chart) 06:20 05:55 09/27/2018 05:55 Discharged to Home. Impression: Sexually transmitted chlamydial jd3 infection of other sites. Condition is Stable. Prescriptions for Doxycycline Hyclate 100 mg Oral Tablet - take 1 tablet by ORAL route every 12 hours; 20 tablet. and Forms are Medication Reconciliation Form, Thank You Letter, Antibiotic Education, Prescription Opioid Use. Follow up: Private Physician; When: Tomorrow; Reason: Continuance of care. ma2
[2018-09-27 06:24] VITALS: BP 144/93; TEMP 98; O2SAT 98
[2018-09-27 11:18] LABS: Urine Blood NEGATIVE (NEG); Urine Glucose NEGATIVE (NEG); Urine Protein 1+ (NEG); Urine Specific Gravity 1.025 (1.005-1.030); Urine pH 5.5 (5.0-7.0)
== END 2018-09-27 06:20 | disposition home or self-care (01) ==
LOC: ER 05:20
DX: A56.8 Sexually transmitted chlamydial infection of other sites (principal)
CPT/HCPCS: 81003; 96372; 99283; J0696

== ENCOUNTER 2018-11-24 18:35 | Emergency (ER) | payer BC ==
--- OUTSIDE RECORDS SUMMARY | 2018-11-24 18:39 | XMS REPORT ---
:1965 Author Organization eClinicalWorks Care Team Providers Name Role Phone [facility] Provider Role Unavailable Allergies, Adverse Reactions, Alerts [...]
--- OUTSIDE RECORDS SUMMARY | 2018-11-24 18:39 | XMS REPORT ---
:1965 [facility] Address [address] [place]. [address] [place] [id number] Care Team Providers Name Role Phone Unavailable Unavailable Unavailable Problems This patient has no known problems. Allergies, Adverse Reactions, Alerts This patient has no known allergies or adverse reactions. Medications This patient has no known medications.
[2018-11-24] MEDS ORDERED: AZITHROMYCIN 250 MG TAB ONE (19:32)
[2018-11-24] MEDS ORDERED: CEFTRIAXONE 1000 MG/VIAL ONE (19:32)
[2018-11-24] MEDS ORDERED: WATER FOR INJ,STERILE 10 ML ONE (19:33)
[2018-11-24] MEDS ORDERED: DOXYCYCLINE 100 MG CAP PO ONE (19:33)
--- NOTE | 2018-11-24 19:33 | RAD REPORT ---
EXAM DESCRIPTION: RAD - Elbow Right 3 View - 11/24/2018 7:23 pm CLINICAL HISTORY: Right elbow pain FINDINGS: The examination is somewhat limited as the patient could not extend his elbow No fracture or dislocation seen. Mild osteoarthritis. Two bony densities along the anterior aspect of the elbow with sclerotic borders may represent loose bodies
--- NOTE | 2018-11-24 19:35 | ER ---
Nurse's Notes [facility] Name: Darrick Conde Age: 52 yrs Sex: Male : 1965 Arrival Date: 11/24/2018 Time: 18:39 Bed 13 Private MD: Unknown, Unknown Diagnosis: Pain in right elbow;Dysuria Presentation: 11/24 18:45 Presenting complaint: Patient states: R ELBOW PAIN AND SWELLING, AND SUBJECTIVE bp SEXUALLY TRANSMITTED INFECTION. Transition of care: patient was not received from another setting of care. Onset of symptoms is unknown. Risk Assessment: Do you want to hurt yourself or someone else? Patient reports no desire to harm self or others. Initial Sepsis Screen: Does the patient meet any 2 criteria? No. Patient's initial sepsis screen is negative. Does the patient have a suspected source of infection? No. Patient's initial sepsis screen is negative. Care prior to arrival: None. 18:45 Method Of Arrival: Ambulatory bp 18:45 Acuity: TA 3 bp Historical: - Allergies: 18:47 No Known Allergies; bp - Home Meds: 18:47 None [Active]; bp - PMHx: 18:47 None; bp - PSHx: 18:47 None; bp - Immunization history:: Adult Immunizations up to date. - Social history:: Smoking status: Patient/guardian denies using tobacco. - Ebola Screening: : No symptoms or risks identified at this time. - Family history:: not pertinent. Screenin:00 Abuse screen: Denies threats or abuse. Nutritional screening: No deficits noted. jb4 Tuberculosis screening: No symptoms or risk factors identified. Fall Risk None identified. Assessment: 19:05 General: Appears in no apparent distress. uncomfortable, Behavior is calm, cooperative, jb4 appropriate for age. Pain: Complains of pain in right elbow Pain does not radiate. Pain currently is 10 out of 10 on a pain scale. Quality of pain is described as aching. Neuro: Level of Consciousness is awake, alert, obeys commands, Oriented to person, place, time, situation. Cardiovascular: Patient's skin is warm and dry. Respiratory: Airway is patent Respiratory effort is even, unlabored, Respiratory pattern is regular, symmetrical. GI: No signs and/or symptoms were reported involving the gastrointestinal system. : Reports possibly having STD. EENT: No signs and/or symptoms were reported regarding the EENT system. Derm: Skin is intact, Skin is pink, warm \T\ dry. 19:05 Musculoskeletal: Circulation, motion, and sensation intact. Range of motion: limited in jb4 right elbow. Vital Signs: 18:47 BP 139 / 93; Pulse 87; Resp 18; Temp 98.3; Pulse Ox 98% ; Weight 131.54 kg; Height 5 bp ft. 11 in. (180.34 cm); 19:47 BP 143 / 101; Pulse 78; Resp 24; Pulse Ox 99% on R/A; jb4 18:47 Body Mass Index 40.45 (131.54 kg, 180.34 cm) bp ED Course: 18:39 Patient arrived in ED. ag5 18:40 Unknown, Unknown is Private Physician. ag5 18:46 Triage completed. bp 18:47 Arm band placed on. bp 18:50 Mckay Fernández MD is Attending Physician. leslie 19:00 Patient has correct armband on for positive identification. Placed in gown. Bed in low jb4 position. Call light in reach. Side rails up X 1. Pulse ox on. NIBP on. 19:00 No provider procedures requiring assistance completed. Patient did not have IV access jb4 during this emergency room visit. 19:11 Junaid Arteaga PA is PHCP. [facility] 19:13 Joshua Baker, RN is Primary Nurse. jb4 19:24 Elbow Right 3 View XRAY In Process Unspecified. EDMS 19:26 Urine Culture Sent. ne 19:35 Michel Velasco MD is Referral Physician. [facility] Administered Medications: 19:28 Drug: Rocephin (cefTRIAXone) 1 grams Route: IM; Site: right gluteus; jb4 19:49 Follow up: Response: No adverse reaction jb4 19:28 Drug: Doxycycline 200 mg Route: PO; jb4 19:49 Follow up: Response: No adverse reaction jb4 19:28 Drug: Zithromax 1 grams Route: PO; jb4 19:49 Follow up: Response: No adverse reaction jb4 Outcome: 19:35 Discharge ordered by . [facility] 19:48 Discharged to home ambulatory. jb4 19:48 Condition: stable 19:48 Discharge instructions given to patient, Instructed on discharge instructions, follow up and referral plans. medication usage, Demonstrated understanding of instructions, follow-up care, medications, Prescriptions given X 3. 19:49 Patient left the ED. jb4 Signatures: Dispatcher [employer] EDMckay Pulido MD MD cha Mickail, Joel, PA PA jmm Bryson, James, RN RN jb4 Radha Day mt, Brian, ANTONY RN Favian Bronson [facility]
--- NOTE | 2018-11-24 19:35 | EDPHYS ---
Physician Documentation [facility] Name: Darrick Conde Age: 52 yrs Sex: Male : 1965 Arrival Date: 11/24/2018 Time: 18:39 Bed 13 Private MD: Unknown, Unknown ED Physician Mckay Fernández HPI: 11/24 18:55 This 52 yrs old Black Male presents to ER via Ambulatory with complaints of ELBOW PAIN, leslie POSSIBLE STD. 18:55 The patient or guardian complains of decreased range of motion, pain, that is chronic. leslie The complaints affect the right antecubital area and right elbow. Context: The problem was sustained at an unknown location. Onset: The symptoms/episode began/occurred 3 day(s) ago. Treatment prior to arrival includes: no previous treatment. Modifying factors: The symptoms are alleviated by nothing. the symptoms are aggravated by nothing. The patient presents with urinary symptoms, dysuria. Associated signs and symptoms: The patient has no apparent associated signs or symptoms. Historical: - Allergies: 18:47 No Known Allergies; bp - Home Meds: 18:47 None [Active]; bp - PMHx: 18:47 None; bp - PSHx: 18:47 None; bp - Immunization history:: Adult Immunizations up to date. - Social history:: Smoking status: Patient/guardian denies using tobacco. - Ebola Screening: : No symptoms or risks identified at this time. - Family history:: not pertinent. ROS: 18:55 Constitutional: Negative for fever, chills, and weight loss, Eyes: Negative for injury, leslie pain, redness, and discharge, ENT: Negative for injury, pain, and discharge, Neck: Negative for injury, pain, and swelling, Cardiovascular: Negative for chest pain, palpitations, and edema, Respiratory: Negative for shortness of breath, cough, wheezing, and pleuritic chest pain, Abdomen/GI: Negative for abdominal pain, nausea, vomiting, diarrhea, and constipation, Back: Negative for injury and pain, : Negative for injury, bleeding, discharge, and swelling, Skin: Negative for injury, rash, and discoloration, Neuro: Negative for headache, weakness, numbness, tingling, and seizure, Psych: Negative for depression, anxiety, suicide ideation, homicidal ideation, and hallucinations, Allergy/Immunology: Negative for hives, rash, and allergies, Endocrine: Negative for neck swelling, polydipsia, polyuria, polyphagia, and marked weight changes, Hematologic/Lymphatic: Negative for swollen nodes, abnormal bleeding, and unusual bruising. 18:55 : Positive for burning with urination, difficulty urinating, penile discharge. 18:55 MS/extremity: Positive for decreased range of motion, pain, swelling, tenderness, of the right antecubital area and right elbow. Exam: 18:55 Constitutional: This is a well developed, well nourished patient who is awake, alert, leslie and in no acute distress. Head/Face: Normocephalic, atraumatic. Eyes: Pupils equal round and reactive to light, extra-ocular motions intact. Lids and lashes normal. Conjunctiva and sclera are non-icteric and not injected. Cornea within normal limits. Periorbital areas with no swelling, redness, or edema. ENT: Nares patent. No nasal discharge, no septal abnormalities noted. Tympanic membranes are normal and external auditory canals are clear. Oropharynx with no redness, swelling, or masses, exudates, or evidence of obstruction, uvula midline. Mucous membranes moist. Neck: Trachea midline, no thyromegaly or masses palpated, and no cervical lymphadenopathy. Supple, full range of motion without nuchal rigidity, or vertebral point tenderness. No Meningismus. Chest/axilla: Normal chest wall appearance and motion. Nontender with no deformity. No lesions are appreciated. Cardiovascular: Regular rate and rhythm with a normal S1 and S2. No gallops, murmurs, or rubs. Normal PMI, no JVD. No pulse deficits. Respiratory: Lungs have equal breath sounds bilaterally, clear to auscultation and percussion. No rales, rhonchi or wheezes noted. No increased work of breathing, no retractions or nasal flaring. Abdomen/GI: Soft, non-tender, with normal bowel sounds. No distension or tympany. No guarding or rebound. No evidence of tenderness throughout. Back: No spinal tenderness. No costovertebral tenderness. Full range of motion. Skin: Warm, dry with normal turgor. Normal color with no rashes, no lesions, and no evidence of cellulitis. Neuro: Awake and alert, GCS 15, oriented to person, place, time, and situation. Cranial nerves II-XII grossly intact. Motor strength 5/5 in all extremities. Sensory grossly intact. Cerebellar exam normal. Normal gait. Psych: Awake, alert, with orientation to person, place and time. Behavior, mood, and affect are within normal limits. 18:55 : Male external genitalia: normal, Bladder: is normal, Sexual behavior: the patient is sexually active, and reports a single partner. 18:55 Musculoskeletal/extremity: ROM: limited active range of motion, in the right antecubital area and right elbow, limited passive range of motion, Circulation is intact in all extremities. Sensation intact. Compartment Syndrome exam of affected extremity: is normal. DVT Exam: no pain, no swelling, negative Homans' sign noted on exam, no appreciated bluish discoloration, no erythema, no increased warmth, tenderness. Vital Signs: 18:47 BP 139 / 93; Pulse 87; Resp 18; Temp 98.3; Pulse Ox 98% ; Weight 131.54 kg; Height 5 bp ft. 11 in. (180.34 cm); 19:47 BP 143 / 101; Pulse 78; Resp 24; Pulse Ox 99% on R/A; jb4 18:47 Body Mass Index 40.45 (131.54 kg, 180.34 cm) bp MDM: 18:50 Patient medically screened. [facility] 19:00 Data reviewed: vital signs, nurses notes, radiologic studies, plain films. [facility] 11/24 18:55 Order name: Urine Culture [facility] 11/24 19:40 Order name: Urine Dipstick--Ancillary (enter results) [facility] 11/24 18:55 Order name: Elbow Right 3 View XRAY; Complete Time: 19:34 [facility] 11/24 18:55 Order name: Urine Dipstick-Ancillary (obtain specimen); Complete Time: 19:26 [facility] Administered Medications: 19:28 Drug: Rocephin (cefTRIAXone) 1 grams Route: IM; Site: right gluteus; jb4 19:49 Follow up: Response: No adverse reaction jb4 19:28 Drug: Doxycycline 200 mg Route: PO; jb4 19:49 Follow up: Response: No adverse reaction jb4 19:28 Drug: Zithromax 1 grams Route: PO; jb4 19:49 Follow up: Response: No adverse reaction jb4 Disposition: 11/24/18 19:35 Discharged to Home. Impression: Pain in right elbow, Dysuria. - Condition is Stable. - Discharge Instructions: Dysuria, Musculoskeletal Pain, Sexually Transmitted Disease, Sexually Transmitted Disease, [id number], Joint Pain, [id number]. - Prescriptions for Doxycycline Hyclate 100 mg Oral Tablet - take 1 tablet by ORAL route every 12 hours; 20 tablet. Cipro 500 mg Oral Tablet - take 1 tablet by ORAL route every 12 hours for 7 days; 14 tablet. Motrin IB 200 mg Oral Tablet - take 2 tablet by ORAL route every 6 hours As needed as needed with food; 30 tablet. - Medication Reconciliation Form, Thank You Letter, Antibiotic Education, Prescription Opioid Use form. - Follow up: Private Physician; When: 2 - 3 days; Reason: Recheck today's complaints, Continuance of care, Re-evaluation by your physician. Follow up: Dr. Michel Velasco; When: 2 - 3 days; Reason: Recheck today's complaints, Re-evaluation by your physician. - Problem is new. - Symptoms have improved. Signatures: Dispatcher [employer] EDMS Mckay Fernández MD MD cha Mickail, Joel, PA PA Joshua Alcaraz, RN RN jb4 Jose C Dumont, RN RN bp Corrections: (The following items were deleted from the chart) 19:49 19:35 11/24/2018 19:35 Discharged to Home. Impression: Pain in right elbow; Dysuria. jb4 Condition is Stable. Discharge Instructions: Dysuria, Musculoskeletal Pain, Joint Pain, [id number], Sexually Transmitted Disease, Sexually Transmitted Disease, [id number]. Prescriptions for Doxycycline Hyclate 100 mg Oral Tablet - take 1 tablet by ORAL route every 12 hours; 20 tablet, Cipro 500 mg Oral Tablet - take 1 tablet by ORAL route every 12 hours for 7 days; 14 tablet, Motrin IB 200 mg Oral Tablet - take 2 tablet by ORAL route every 6 hours As needed as needed with food; 30 tablet. and Forms are Medication Reconciliation Form, Thank You Letter, Antibiotic Education, Prescription Opioid Use. Follow up: Private Physician; When: 2 - 3 days; Reason: Recheck today's complaints, Continuance of care, Re-evaluation by your physician. Follow up: Dr. Michel Velasco; When: 2 - 3 days; Reason: Recheck today's complaints, Re-evaluation by your physician. Problem is new. Symptoms have improved. nicholas
[2018-11-24 19:51] LABS: Urine Blood TRACE (NEG); Urine Glucose NEGATIVE (NEG); Urine Protein NEGATIVE (NEG); Urine Specific Gravity 1.015 (1.005-1.030)
[2018-11-24 19:54] VITALS: TEMP 98.3
[2018-11-24 19:56] VITALS: BP 143/101; O2SAT 99
== END 2018-11-24 19:49 | disposition home or self-care (01) ==
LOC: ER 18:35
DX: R30.0 Dysuria (principal)
CPT/HCPCS: 81003; 87086; 87088; 96372; 99284

== ENCOUNTER 2024-04-06 07:21 | Emergency (ER) | payer BC, SELFPAY ==
--- OUTSIDE RECORDS SUMMARY | 2024-04-06 07:24 | XMS REPORT | Continuity of Care Document ---
Author Name Unknown Address [address] [facility] [address] [place] [address] [facility] Address [address] [facility] [address] [place] [address] Care Team Providers Care Hood Maker Name Role Phone Pcp, Patient Does Not Have A Primary Care Physic huy KATTY BLAKE Attending Clinician Unavailable KATTY BLAKE Attending Clinician Unavailable Katty Blake DO Attending Clinician [phone] DAMARIS BUSTAMANTE Attending Clinician Unavailable DAMARIS BUSTAMANTE Attending Clinician Unavailable Damaris Bustamante MD Attending Clinician [phone] BRENDA HOANG Attending Clinician Unavailable Brenda Euceda Attending Clinician [phone] MIKI ALMEIDA Attending Clinician Unavailab MIKI Mckay Admitting Clinician Unavailab le Payers Payer Name Policy Type Policy Number Effective Date Expirati on Date Source [id number] Problems Condition Name Condition Details Condition Category Status Onset Date Resolution Date Last Treatment Date Treating Clinician Comments Source Elevated BP without diagnosis of hypertensi on Elevated BP without diagnosis of hypertensi on Diagnosis Active [facility] No known active problems No known active problems Disease [facility] Cellulitis of left lower extremity Cellulitis of left lower extremity Diagnosis Active [facility] Stasis edema of left lower extremity Stasis edema of left lower extremity Diagnosis Active [facility] Allergies, Adverse Reactions, Alerts Allergy Name Allergy Type Status Severity Reaction(s) Onset Date Inactive Date Treating Clinician Comments Source Denies latex allergy Miscella neous Allergy Active U Not Specified 2018-06 14:45: 41 [facility] ([facility]) No known drug Allergie s Miscella neous Allergy Active U Not Specified 2018-06 14:45: 41 [facility] ([facility]) No Known Medicati on Allergie s Drug Active [facility] No Known Medicati on Allergie s Drug Active [facility] No Known Medicati on Allergie s Drug Active [facility] No Known Medicati on Allergie s Drug Active [facility] NO KNOWN ALLERGIE S Drug Class Active [facility] Social History Social Habit Start Date Stop Date Quantity Comments Source Sexual orientation U [facility] Exposure to SARS-CoV-2 (event) Not sure [facility] Sex assigned at 1965 00:00:00 1965 00:00:00 [facility] Smoking Status Start Date Stop Date Source Tobacco smoking consumption unknown [facility] Medications Ordered Medication Name Filled Medication Name Start Date Stop Date Current Medication? Ordering Clinician Indication Dosage Frequency Signature (SIG) Comments Components Source HYDROcodone -acetaminop hen (NORCO) 10-325 mg tablet 1 tablet 2023-06 12:00: 00 04-06 10:59 :00 No 1{tbl} 1 tablet, Oral, ONCE, 1 dose, On 04/06/24 at 0700, Routine [facility] naproxen 500 mg tablet 2023-06 00:00: 00 Yes [id number] 500mg Take 1 tablet by mouth in the morning and 1 tablet in the evening. Take with meals. [facility] clindamycin in 5 % dextrose (CLEOCIN) 600 mg/50 mL IV piggyback RTU 600 mg 2023-06 14:45: 00 04-05 15:17 :00 No 600mg 600 mg, IV Piggyback, ONCE, 1 dose, On 04/05/24 at 0945, Administer over 30 Minutes, 50 mL, Reason for Anti-Infec tive: Documented Infection, Documented Infection Site: Skin / Soft Tissue, Duration of Therapy: Once (ED), Restricted use approved by: ED PROVIDER [facility] ondansetron (ZOFRAN (PF)) injection 4 mg 2023-06 13:45: 00 04-05 13:32 :00 No 4mg 4 mg, Slow IV Push, ONCE, 1 dose, On 04/05/24 at 0845, ANETTE [facility] fentanyl PF (SUBLIMAZE (PF)) injection 50 mcg 2023-06 13:45: 00 04-05 13:31 :00 No 50ug 50 mcg, Slow IV Push, ONCE, 1 dose, On 04/05/24 at 0845, STAT [facility] ondansetron 4 mg disintegrat ing tablet 2023-06 00:00: 00 Yes [id number] 4mg Take 1 tablet by mouth every 4 (four) hours as needed for Nausea and Vomiting (N/V). [facility] clindamycin 300 mg capsule 2023-06 00:00: 00 04-16 04:59 :00 Yes [id number] 300mg Take 1 capsule by mouth 4 (four) times daily for 10 days. [facility] HYDROcodone -acetaminop hen 5-325 mg tablet 2023-06 00:00: 00 04-13 04:59 :00 Yes [id number] 1{tbl} Take 1-2 tablets by mouth every 6 (six) hours as needed for Pain (scale 4-6) for up to 7 days. Indication s: acute pain [facility] cyclobenzap rine 5 mg tablet 12-07 00:00: 00 Yes [id number] 5mg Take 1 tablet by mouth 3 (three) times daily. [facility] traMADOL (ULTRAM) 50 mg tablet 12-07 00:00: 00 Yes [id number] 50mg Take 1 tablet by mouth every 8 (eight) hours as needed for Pain (scale 4-6). [facility] Vital Signs Vital Name Observation Time Observation Value Comments S ource Systolic blood pressure 2024-04-06 10:35:00 121 mm[Hg] [facility] Diastolic blood pressure 2024-04-06 10:35:00 85 mm[Hg] [facility] Heart rate 2024-04-06 10:35:00 90 /min Unive [facility] Body temperature 2024-04-06 10:35:00 36.61 Jolie [facility] Respiratory rate 2024-04-06 10:35:00 18 /min [facility] Body height 2024-04-06 10:35:00 175.3 cm [facility] Body weight 2024-04-06 10:35:00 131.543 kg [facility] BMI 2024-04-06 10:35:00 42.83 kg/m2 [facility] Oxygen saturation in Arterial blood by Pulse oximetry 2024-04-06 10:35:00 98 /min [facility] Systolic blood pressure 2024-04-05 15:17:50 131 mm[Hg] [facility] Diastolic blood pressure 2024-04-05 15:17:50 84 mm[Hg] [facility] Heart rate 2024-04-05 15:17:50 87 /min [facility] Respiratory rate 2024-04-05 15:17:50 28 /min [facility] Oxygen saturation in Arterial blood by Pulse oximetry 2024-04-05 15:17:50 98 /min [facility] Body temperature 2024-04-05 11:55:00 37.5 Jolie [facility] Body height 2024-04-05 11:55:00 180.3 cm [facility] Body weight 2024-04-05 11:55:00 131.543 kg [facility] BMI 2024-04-05 11:55:00 40.45 kg/m2 [facility] Systolic blood pressure 2021-09-08 01:59:00 139 mm[Hg] [facility] Diastolic blood pressure 2021-09-08 01:59:00 103 mm[Hg] [facility] Heart rate 2021-09-08 01:59:00 106 /min [facility] Body temperature 2021-09-08 01:59:00 36.78 Jolie [facility] Respiratory rate 2021-09-08 01:59:00 20 /min [facility] Body height 2021-09-08 01:59:00 180.3 cm [facility] Body weight 2021-09-08 01:59:00 136.079 kg [facility] BMI 2021-09-08 01:59:00 41.84 kg/m2 [facility] Oxygen saturation in Arterial blood by Pulse oximetry 2021-09-08 01:59:00 97 /min [place] [facility] Height/Length Measured 2021-07-14 09:11:02 180 cm Weight Dosing 2021-07-14 09:11:02 132.70 kg Height/Length Measured 2021-07-14 09:07:29 180 cm Weight Dosing 2021-07-14 09:07:29 132.70 kg Height/Length Measured 2021-07-14 09:07:27 180 cm Weight Dosing 2021-07-14 09:07:27 132.70 kg Height/Length Measured 2021-07-14 09:07:26 180 cm Weight Dosing 2021-07-14 09:07:26 132.70 kg Height/Length Measured 2021-07-14 09:07:15 180 cm Weight Dosing 2021-07-14 09:07:15 132.70 kg Height/Length Measured 2019-07-10 05:15:42 Procedures Procedure Date / Time Performed Performing Clinician Source COMP. METABOLIC PANEL ([id number]) 2024-04-05 12:40:00 Damaris Bustamante [facility] CBC WITH DIFF 2024-04-05 12:40:00 Damaris Bustamante [facility] PROTHROMBIN TIME / INR 2024-04-05 12:40:00 James Bustamante [facility] ACTIVATED PARTIAL THRMPLAS SUREKHA 2024-04-05 12:40:00 Damaris Bustamante [facility] NOTICE OF PRIVACY PRACTICES 2021-09-08 01:28:41 Doctor Unassigned, [place] [facility] CONSENT/REFUSAL FOR DIAGNOSIS AND TREATMENT 2021-09-08 01:27:24 Doctor Unassigned, [place] [facility] Plan of Care Planned Activity Planned Date Details Comments Source Encounters Start Date/Time End Date/Time Encounter Type Admission Type Attending [facility] Facility Care Department Encounter ID Source 2024-04-06 05:40:00 2024-04-06 06:32:00 Emergency JOSE JOHNSONKATTY MUHAMMAD [facility] ERT [id number] [facility] 2024-04-06 05:40:00 2024-04-06 06:32:00 Emergency BlakeKatty AT [facility] [id number] [facility] 2024-04-05 06:59:00 2024-04-05 10:34:00 Emergency DAMARIS ORTA DONNELL [facility] ERT [id number] [facility] 2024-04-05 06:59:00 2024-04-05 10:34:00 Emergency Damaris Bustamante [facility] AT [facility] [id number] [facility] 2021-09-07 21:10:00 2021-09-07 22:18:00 Emergency X BRENDA HOANG [facility] ERT [id number] [facility] 2021-09-07 21:10:00 2021-09-07 22:18:00 Emergency Brenda Hoang [facility] [id number] [facility] 2019-07-10 05:11:00 2019-07-10 05:11:[id number] [facility] 2019-07-10 05:11:00 2019-07-10 05:11:00 Emergency MCSETX BETTY [id number] [facility] 2019-05-28 09:08:00 2019-06-23 10:46:00 Outpatient 3 MIKI ALMEIDA [facility] [id number] [facility] 2018-04-01 08:30:00 2018-04-01 08:30:00 Outpatient [facility] [id number] [facility] Results Test Description Test Time Test Comments Results Result Co mments Source [facility] / [id number] 13:52:13* Test Item Value Reference Range Interpretation Comme nts PROTIME PATIENT (test code = 5964-2) 18.1 10.1-12.6 H INR (test code = 6301-6) 1.6 Normal INR <1.1; Warfarin Therapeutic range 2.0 to 3.0 or 2.5 to 3.5, depending upon the indications. Lab Interpretation (test code = 98505-2) [facility]normal [facility] ([id number])2024-04-05 13:47:41* Test Item Value Reference Range Interpretation Comme nts NA (test code = 5707633978) 132 mmol/L 135-145 L K (test code = 7037454785) 3.4 mmol/L 3.5-5.0 L CL (test code = 4753442165) 102 mmol/L 98-108 CO2 TOTAL (test code = 3745953823) 23 mmol/L 23-31 AGAP (test code = 3180374215) 7 2-16 BUN (test code = 1550400343) 26 mg/dL 7-23 H GLUCOSE (test code = 1058983303) 182 mg/dL 70-110 H CREATININE (test code = 2160-0) 1.38 mg/dL 0.60-1.25 H TOTAL BILI (test code = 2248727061) 1.1 mg/dL 0.1-1.1 CALCIUM (test code = 1142278152) 8.9 mg/dL 8.6-10.6 T PROTEIN (test code = 6498130265) 7.1 g/dL 6.3-8.2 ALBUMIN (test code = 0768388775) 3.6 g/dL 3.5-5.0 ALK PHOS (test code = 1840109011) 58 U/L 34-122 ALTv (test code = 1742-6) 16 U/L 5-50 AST(SGOT) (test code = 4410601186) 17 U/L 13-40 eGFR (test code = 25471-5) 58.9 mL/min/1.73m2 CKD-EPI eGFR (2020). Assuming creatinine has been stable day-to-day for at least three months, the eGFR indicates Category G3a (45 - 59 mL/min/1.73 m2) Lab Interpretation (test code = 33655-2) [facility]normal [facility] [id number] 13:15:32* Test Item Value Reference Range Interpretation Comme nts WBC (test code = 6690-2) 16.10 4.20-10.70 H RBC (test code = 789-8) 4.14 4.26-5.52 L HGB (test code = 718-7) 13.2 g/dL 12.2-16.4 HCT (test code = 4544-3) 37.9 % 38.4-49.3 L MCV (test code = 787-2) 91.5 fL 81.7-95.6 MCH (test code = 785-6) 31.9 pg 26.1-32.7 MCHC (test code = 786-4) 34.8 g/dL 31.2-35.0 RDW-SD (test code = 11616-8) 40.5 fL 38.5-51.6 RDW-CV (test code = 788-0) 12.0 % 12.1-15.4 L PLT (test code = 777-3) 210 150-328 MPV (test code = 45448-5) 8.8 fL 9.8-13.0 L NRBC/100 WBC (test code = 8743858755) 0.0 0.0-10.0 NRBC x10^3 (test code = 6189715968) See_Comment [Automated message] The system which generated this result transmitted reference range: 10*3/?L. The reference range was not used to interpret this result as normal/abnormal. GRAN MAT (NEUT) % (test code = 770-8) 80.7 % IMM GRAN % (test code = 4049703399) 1.70 % LYMPH % (test code = 736-9) 7.5 % MONO % (test code = 5905-5) 8.8 % EOS % (test code = 713-8) 1.1 % BASO % (test code = 706-2) 0.2 % GRAN MAT x10^3(ANC) (test code = 5764801263) 12.99 10*3/uL 1.99-6.95 H IMM GRAN x10^3 (test code = 9008653991) 0.27 10*3/uL 0.00-0.06 H LYMPH x10^3 (test code = 731-0) 1.20 10*3/uL 1.09-3.23 MONO x10^3 (test code = 742-7) 1.42 10*3/uL 0.36-1.02 H EOS x10^3 (test code = 711-2) 0.18 10*3/uL 0.06-0.53 BASO x10^3 (test code = 704-7) 0.04 10*3/uL 0.01-0.09 Lab Interpretation (test code = 90134-1) Abnormal [facility] Hospital[facility] [id number] 07:31:54C Urine Added by GL_SET_CULT_RFLXMultiple organisms isolated. Probable contaminant. Suggest sterile recollect. No further workup.Urinalysis with Culture, if indicated 2019-06-01 15:58:05* Test Item Value Reference Range Interpretation Comme nts UA Color (test code = UA Color) Yellow Yellow UA Appear (test code = UA Appear) Clear Clear UA pH (test code = UA pH) 6.0 UA Spec Grav (test code = UA Spec Grav) 1.017 SGU 1.005-1.030 UA Glucose (test code = UA Glucose) Negative Negative UA Bili (test code = UA Bili) Negative Negative UA Ketones (test code = UA Ketones) Negative Negative UA Blood (test code = UA Blood) Negative Negative UA Protein (test code = UA Protein) Trace Negative A UA Urobilinogen (test code = UA Urobilinogen) 1.0 EU/dL >0.2 UA Nitrite (test code = UA Nitrite) Negative Negative UA Leuk Est (test code = UA Leuk Est) 2+ Negative A UA Micro Ind? (test code = UA Micro Ind?) Indicated Not Indicated A Result created by rule GL_SET_UA_MICRO_IND Urinalysis [id number] 15:58:05* Test Item Value Reference Range Interpretation Comme nts UA WBC (test code = UA WBC) 6-10 /HPF 0-5 A UA RBC (test code = UA RBC) 0-4 /HPF 0-4 UA Bacteria (test code = UA Bacteria) Negative /HPF Negative UA Squam Epithelial (test co de = UA Squam Epithelial) 21-73 /LPF 0-20 A UA Hyal Cast (test code = UA Hyal Cast) 1-6 /LPF 1-6 WHOLE BLOOD [id number] 09:15:00* Test Item Value Reference Range Interpretation Comme nts WHOLE BLOOD GLUCOSE (test code = POC GLU) 236 MG/DL 70-99 H Fasting glucose normal <100 MG/DL- [employer] recommendation WHOLE BLOOD [id number] 22:05:00* Test Item Value Reference Range Interpretation Comme nts WHOLE BLOOD GLUCOSE (test code = POC GLU) 284 MG/DL 70-99 H Fasting glucose normal <100 MG/DL- [employer] recommendation [id number] 21:28:00* Test Item Value Reference Range Interpretation Comme nts GLUCOSE (test code = URGLU) >=1000 MG/DL NEG-100 BILIRUBN (test code = URBILI) NEGATIVE NEGATIVE KETONE (test code = URKET) NEGATIVE MG/DL NEGATIVE BLOOD (test code = URBLD) NEGATIVE UR PH (test code = URPH) 5.5 5.0-7.5 PROTEIN (test code = URPRO) NEGATIVE MG/DL NEGATIVE NITRITES (test code = URNIT) NEGATIVE NEGATIVE UROBILINGEN (test code = URURO) 0.2 EU/DL 0.2-1.0 LEUKOCYT (test code = URLEU) NEGATIVE NEGATIVE UA COLOR (test code = UA COLOR) YELLOW YELLOW CLARITY (test code = CLARITY) CLEAR CLEAR SP GRAV (test code = URSPGRAV) 1.030 1.000-1.025 H UAMICRO (test code = UAMICRO) NO [id number] 21:24:00* Test Item Value Reference Range Interpretation Comme nts WBC (test code = WBC) 6.1 K/UL 3.5-10.9 RBC (test code = RBC) 4.86 M/UL 4.3-5.7 HGB (test code = HGB) 15.2 G/DL 13.0-17.9 HCT (test code = HCT) 43.2 % 38-52 MCV (test code = MCV) 88.9 FL 80-98 MCH (test code = MCH) 31.3 PG 28-32 MCHC (test code = MCHC) 35.2 G/DL 32.5-36.5 RDW (test code = RDW) 11.2 % 11.5-14.5 L PLT (test code = PLT) 252 K/UL 150-450 MPV (test code = MPV) 9.9 FL 7.4-10.4 MANDIFF (test code = MANDIFF) NO SCAN (test code = SCAN) NO NEUT% (test code = NEUT%) 49.8 % 40-75 LYMPH% (test code = LYMPH%) 36.5 % 24-44 MONO% (test code = MONO%) 10.6 % 0-13 EOS% (test code = EOS%) 2.6 % 0-4 BASO % (test code = BASO%) 0.3 % 0-2 IG (test code = IG) 0 % 0-1 IG% (test code = IG%) 0.2 % 0-1 IG% = Metamyeloc ytes, Myelocytes, and Promyelocytes. (Immature neutrophils not including "bands".) > 3% IG indicates risk of sepsis NRBC% (test code = NRBC%) 0 /100 WBC ABS NEUT (test code = NEUT) 3.0 K/UL 1.2-7.2 [id number] 21:21:00* Test Item Value Reference Range Interpretation Comme nts BETA-HYDROXYBUTYRATE (test c ode = BETAHYD) 0.06 mmol/L 0.02-0.27 BMP, BASIC METABOLIC [id number] 21:16:00* Test Item Value Reference Range Interpretation Comme nts SODIUM (test code = NA) 134 MMOL/L 137-145 L K+ (test code = KSERUM) 4.2 MMOL/L 3.5-5.1 PLEASE NOTE NEW REFERENCE RANGE(S) IN EFFECT EFFECTIVE 01/27/2010 - NEW ANALYZER (VITROS 5600) CHLORIDE (test code = CL) 101 MMOL/L 98-107 CO2 (test code = CO2) 21 MMOL/L 22-30 L BUN (test code = BUN) 14 MG/DL 9-20 CREA (test code = CREA) 0.9 MG/DL 0.8-1.5 GLUCOSE (test code = GLUCOSE) 384 MG/DL 70-99 H Fasting glucos e normal <100 MG/DL- [employer] recommendation CALCIUM (test code = CABLOOD) 9.5 MG/DL 8.4-10.2 GFR (test code = GFR) 113 mL/min/1.73m2 A GFR of >90 mL/min/1.73m2 is considered normal. WHOLE BLOOD [id number] 20:10:00* Test Item Value Reference Range Interpretation Comme nts WHOLE BLOOD GLUCOSE (test code = POC GLU) 390 MG/DL 70-99 H Fasting glucose normal <100 MG/DL- [employer] recommendation Notes Date/Time Note Provider Source 2024-04-06 06:30:05 Pt given printed and verbal discharge instructions regarding cellulitis of right leg, Prescriptions provided Pt verbalized understanding of instructions, pt awake alert oriented, resp reg unlabored, skin w/d, color appropriate for race, moves all ext well,pt encouraged to follow up with pcp Advised to seek medical attention for new/prolonged/worsening of symptom No adverse reaction to meds given in ER noted upon discharge Awake, alert oriented, resp reg unlabored, skin w/d, pt leaving amb with steady gait, in no apparent distress, Vi Wang RN [facility] 2024-04-06 05:34:48 Pt presents to ED with c/o right leg pain and swelling. Pt was seen, treated and discharged home from ED yesterday with f/u instructions. Pt returns this morning stating "It still hurts" Pt states "the prescriptions did no good" Pt rates pain 02/01. Pt has had this leg issue for a week Pt had complete workup yesterday, IV, labs, medication, and doppler. Janina Ma RN [facility] 2024-04-06 05:30:00 [facility] Emergency Department Note Patient Name: Darrick Sutton Date of : 1965 58 year old male [id number] Primary Care Physician: PATIENT DOES NOT HAVE A PCP Patient Escorted by: Family [5] Mode of Arrival: Personal means [1] EMS Treatment Prior to ED Arrival: [employer] treatment: None Travel and Exposure Screening: Symptoms Does patient have any of these symptoms?: (not recorded) Exposure Screening Has patient had contact with someone with a communicable disease in the last month?: (not recorded) Diseases exposed to:: (not recorded) Is Patient ?: (not recorded) Exposure Date: (not recorded) Chief Complaint: Chief Complaint Patient presents with Leg Pain History of Present Illness: Darrick Sutton is a 58 year old male with right leg cellulitis with pain in leg. Has prescriptions for norco, clinda, and muscle relaxer. Afebrile. No abscess. Past Medical History/Immunizations: No past medical history on file. Tetanus received in last 5 years: Unknown Allergies: No Known Allergies Past Social History: Substance & Sexual Activity No substance use or sexual activity history on file. Past Surgical History: No past surgical history on file. Review of Systems: Review of Systems Cardiovascular: Positive for leg swelling. Gastrointestinal: Negative for nausea and vomiting. Musculoskeletal: Positive for myalgias. Negative for joint swelling. Skin: Positive for color change. Negative for pallor and wound. Physical Exam: ED Triage Vitals [04/06/24 0535] Weight 131.5 kg (290 lb) Actual or estimated Height 1.753 m (5' 9") BP 121/85 Pulse 90 Resp 18 Temp 36.6 ?C (97.9 ?F) Temp src SpO2 98 % Measured on Room air Physical Exam Constitutional: General: He is not in acute distress. Appearance: He is well-developed. HENT: Head: Normocephalic and atraumatic. Eyes: Pupils: Pupils are equal, round, and reactive to light. Cardiovascular: Rate and Rhythm: Normal rate. Pulmonary: Effort: Pulmonary effort is normal. Abdominal: General: There is no distension. Musculoskeletal: General: Swelling and tenderness present. No deformity or signs of injury. Normal range of motion. Cervical back: Normal range of motion. Right lower leg: Edema present. Skin: General: Skin is warm and dry. Neurological: Mental Status: He is alert and oriented to person, place, and time. Radiology: No orders to display Lab Results: Lab Results - No data to display EKG: If EKG completed, see Procedure Note. Orders and Treatments: No orders of the defined types were placed in this encounter. Orders Placed This Encounter Medications HYDROcodone-acetaminophen (NORCO) 10-325 mg tablet 1 tablet naproxen 500 mg tablet First Provider Eval: ED Events None ED COURSE Diagnosis/Impression as of 04/06/24 0605 Cellulitis of right leg Procedures: Procedures MDM: Medical Decision Making Problems Addressed: Cellulitis of right leg: acute illness or injury Details: Afebrile. Less than 24 hours after IV abx and starting oral abx. Appropriate treatment plan. Gave norco in ED. Patient to double if necessary on norco over next couple of days if necessary. Take naproxen as baseline pain and antiinflammatory. Risk Prescription drug management. Flowsheet Documentation: Scoring Tools: No data recorded Disposition/Condition: ED Disposition ED Disposition Disch - Home Condition Stable Comment -- Discharge Medications: Patient's Medications START taking these medications NAPROXEN 500 MG TABLET Take 1 tablet by mouth in the morning and 1 tablet in the evening. Take with meals. CONTINUE taking these medications which have NOT CHANGED CLINDAMYCIN 300 MG CAPSULE Take 1 capsule by mouth 4 (four) times daily for 10 days. CYCLOBENZAPRINE 5 MG TABLET Take 1 tablet by mouth 3 (three) times daily. HYDROCODONE-ACETAMINOPHEN 5-325 MG TABLET Take 1-2 tablets by mouth every 6 (six) hours as needed for Pain (scale 4-6) for up to 7 days. Indications: acute pain ONDANSETRON 4 MG DISINTEGRATING TABLET Take 1 tablet by mouth every 4 (four) hours as needed for Nausea and Vomiting (N/V). TRAMADOL (ULTRAM) 50 MG TABLET Take 1 tablet by mouth every 8 (eight) hours as needed for Pain (scale 4-6). START taking Modified Medications as Prescribed No medications on file STOP taking these medications No medications on file Follow-up: Contact information for follow-up [facility] [place] Specialty: Internal Medicine [address], [address] [facility] [address] Instructions: for follow up of your emergency visit. [facility]gency [facility] Specialty: Emergency Medicine [address] [facility] [address] Instructions: If symptoms worsen as documented in the discharge Electronically signed by: Katty Blake DO 04/06/24 0605 T [facility] 2024-04-05 10:33:31 Patient discharged to home. Patient given printed and verbal discharge instructions regarding diagnosis. Instructed to follow up with PCP. Patient verbalized understanding of instructions. Patient awake, alert, oriented, respirations even and unlabored, skin warm and dry, color appropriate for race. No adverse reaction to meds given in ER noted upon discharge. PIV removed. Discussed medications. Advised to seek medical attention for new/prolonged/worsening of symptoms, patient taken by wheelchair to POV, in no apparent distress. Ramos Pichardo RN [facility] 2024-04-05 10:11:56 DC hold - waiting for abx to finish T [facility] 2024-04-05 06:53:15 Darrick Sutton is a 58 year old male c/o right lower leg pain s/p driving from [employer], denies injury, leg very tender to touch , looks larger than left, no redness noted NNAT Abby Landrum RN [facility]
[2024-04-06] MEDS ORDERED: KETOROLAC 30 MG/ML INJ ONE (07:32)
[2024-04-06 07:40] LABS: Absolute Eosinophils 0.1 K/uL (0-0.5); Absolute Lymphocytes (CBC) 1.2 K/uL (0.7-4.9); Absolute Monocytes 1.2 K/uL (0.1-1.3); Absolute Neutrophil 8.9 K/uL (1.8-8.0); Basophils % 0.2 % (0-1.3); Eosinophils % 0.7 % (0-4.4); Hematocrit 38.6 % (39.6-49.0); Hemoglobin 13.2 g/dL (13.6-17.9); Lymphocytes % 10.2 % (15.3-44.8); MCH 31.4 pg (27.0-35.0); MCHC 34.1 g/dL (32.0-36.0); MCV 92.2 fL (80-100); MPV 6.3 fL (7.6-11.3); Monocytes % 10.8 % (3.3-12.3); Neutrophils % 78.1 % (41.7-73.7); Nucleated Red Blood Cells % 0.2 % (0-0); Platelets 238 thou/uL (152-406); RBC Red Blood Cell Count 4.18 M/uL (4.33-5.43); Red Cell Distribution Width 13.2 % (12.1-15.2)
[2024-04-06 08:20] LABS: Anion Gap 8.4 mEq/L (5.0-15.0); Potassium 3.4 mEq/L (3.5-5.1)
--- NOTE | 2024-04-06 09:36 | RAD REPORT ---
EXAM:Extremity Venous Uni Ltd HISTORY: Leg pain TECHNIQUE: Sonographic evaluation right lower extremity performed.Grayscale, color and spectral wesley sis performed on all vessels COMPARISON: None. FINDINGS: Right common femoral, superficial femoral, greater saphenous, popliteal and right posterior tibial ve ins are compressible and demonstrate augmentation. Doppler demonstrates good flow. 4.7 x 1.5 x 3.7 cm lymph node right inguinal region. Additional 4.1 x 2.5 x 3.9 cm lymph node. These may be reactive in nature. Follow-up ultrasound in couple of months could be obtained to assess stability/resolution IMPRESSION: No evidence of deep venous thrombosis involving the right lower extremity.
--- NOTE | 2024-04-06 09:40 | EDPHYS ---
Physician Documentation [facility] Name: Darrick Conde Age: 58 yrs Sex: Male : 1965 Arrival Date: 04/06/2024 Time: 07:21 Bed 6 Private MD: ED Physician Leodan Curtis HPI: 04/06 07:29 This 58 yrs old Black Male presents to ER via Wheelchair with complaints of Leg ec2 Swelling - Pain. 07:29 Patient arrives today for evaluation of right lower extremity swelling. Patient reports ec2 has been having several days of swelling, progressive pain. Patient reports subjective fevers. Patient reports of redness and warmth to the area as well. No difficulty breathing, no history of blood clots. Not on blood thinners.. Historical: - Allergies: 07:27 No Known Allergies; ll1 - PMHx: 07:27 Hypertensive disorder; Diabetes mellitus; ll1 - PSHx: 07:27 None; ll1 - Immunization history:: Adult Immunizations up to date. - Infectious Disease History:: Denies. - Social history:: Smoking status: Patient denies any tobacco usage or history of. ROS: 07:30 Constitutional: as per hpi ec2 Exam: 07:30 Constitutional: GEN: NAD Head: atraumatic Eyes: EOMI Ears: External ears are ec2 normal. CV: regular rate LUNGS: no respiratory distress ABD: non-distended SKIN: Right lower extremity with erythema and warmth appreciated. Swelling noted as well. MSK: no evidence of trauma Vital Signs: 07:27 Resp 18; Temp 97.8; Weight 131.54 kg; Height 5 ft. 11 in. ; Pain 9/10; ll1 07:37 BP 122 / 83; mb9 07:39 Pulse 83; Resp 17; Temp 97.9; Pulse Ox 94% on R/A; ap3 09:20 BP 98 / 61; Pulse 72; Resp 18; Pulse Ox 92% on R/A; ap3 09:50 BP 116 / 76; Pulse 78; Resp 18; Pulse Ox 100% on R/A; mb9 10:29 BP 125 / 90; Pulse 71; Resp 18; Pulse Ox 100% on R/A; mb9 07:27 Body Mass Index 40.45 (131.54 kg, 180.34 cm) ll1 07:27 Pain Scale: Adult ll1 MDM: 07:31 Data reviewed: vital signs. ED course: Patient arrives today for evaluation of right ec2 lower extremity swelling. Examination remarkable for well-appearing nontoxic hemodynamically stable individuals otherwise in no acute distress with a reassuring examination with right lower extremity findings as noted above. Suspect cellulitis versus possible DVT. Will evaluate with lab work, ultrasonography. Differential includes that above as well as I considered other processes such as arterial pathology, compartment syndrome.. 09:39 ED course: Ultrasound negative for DVT, does show lymphadenopathy which would be ec2 consistent with cellulitis. Will discharge home with prescription for antibiotics. Return precautions given. 09:39 Patient medically screened. ec2 04/06 07:27 Order name: CBC with Diff; Complete Time: 08:04 ec2 04/06 07:27 Order name: BMP; Complete Time: 08:27 ec2 04/06 07:33 Order name: Extremity Venous Uni Ltd; Complete Time: 09:39 EDMS 04/06 07:43 Order name: IV Saline Lock; Complete Time: 07:43 mb9 04/06 07:45 Order name: Labs - recollect needed: recollect the green top/ hemolyzed; Complete Time: eb 07:56 Administered Medications: 07:38 Drug: Ketorolac IVP 15 mg IVP once Route: IVP; Site: left antecubital; ap3 08:30 Follow up: Response: No adverse reaction mb9 09:49 Drug: morphine IVP or IV 2 mg IVP once over 4 mins Route: IVP; Infused Over: 4 mins; mb9 Site: left antecubital; 10:30 Follow up: Response: No adverse reaction mb9 09:49 Drug: Trimethoprim-Sulfamethoxazole PO (160 mg-800 mg (DS) 1 tablet PO once Route: PO; mb9 10:30 Follow up: Response: No adverse reaction mb9 Disposition Summary: 04/06/24 09:39 Discharge Ordered Notes: Location: Home ec2 Condition: Stable ec2 Diagnosis - Cellulitis of right lower limb ec2 - Hypokalemia ec2 Followup: ec2 - With: Private Physician - When: - Reason: Re-evaluation by your physician Discharge Instructions: - Discharge Summary Sheet ec2 - Cellulitis, Adult ec2 Forms: - Medication Reconciliation Form ec2 - Antibiotic Education ec2 - Prescription Opioid Use ec2 - Patient Portal Instructions ec2 - Leadership Thank You Letter ec2 Prescriptions: - Bactrim DS 800-160 mg Oral Tablet - take 1 tablet ORAL route every 12 hours for 7 days; 14 tablet; Refills: 0, ec2 Product Selection Permitted - methocarbamol 500 mg Oral tablet - take 2 tablets ORAL route 4 times per day; 30 tablet; Refills: 0, Product ec2 Selection Permitted Signatures: Dispatcher [employer] Mary Kay Hernandez RN RN ap3 Cindy Rockwell Lynsay RN RN ll1 Omaira Roberts RN RN mb9 Leodan Curtis MD MD ec2 Corrections: (The following items were deleted from the chart) 07:28 07:28 Lower Extremity Artery Uni Ltd+[email or web address] ordered. OLIVIAIA EDIA
--- NOTE | 2024-04-06 09:40 | ER ---
Nurse's Notes [facility] Name: Darrick Conde Age: 58 yrs Sex: Male : 1965 Arrival Date: 04/06/2024 Time: 07:21 Bed 6 Private MD: Diagnosis: Cellulitis of right lower limb;Hypokalemia Presentation: 04/06 07:27 Chief complaint: Patient states: R leg pain, redness, warmth, swelling for 4 days. No ll1 fever. Coronavirus screen: Client denies travel out of the [place] in the last 14 days. At this time, the client does not indicate any symptoms associated with coronavirus-19. Ebola Screen: Patient denies travel to an Ebola-affected area in the 21 days before illness onset. Initial Sepsis Screen: Does the patient meet any 2 criteria? No. Patient's initial sepsis screen is negative. Does the patient have a suspected source of infection? No. Patient's initial sepsis screen is negative. Risk Assessment: Do you want to hurt yourself or someone else? Patient reports no desire to harm self or others. Onset of symptoms was April 03, 2024. 07:27 Method Of Arrival: Wheelchair ll1 07:27 Acuity: TA 3 ll1 Triage Assessment: 07:29 General: Appears uncomfortable, Behavior is calm, cooperative, appropriate for age. ll1 Pain: Complains of pain in right leg Quality of pain is described as aching. Derm: Reports redness/pain RLE. Musculoskeletal: Circulation, motion, and sensation intact. Capillary refill < 3 seconds, in right toes. Reports pain in right leg. Historical: - Allergies: 07:27 No Known Allergies; ll1 - PMHx: 07:27 Hypertensive disorder; Diabetes mellitus; ll1 - PSHx: 07:27 None; ll1 - Immunization history:: Adult Immunizations up to date. - Infectious Disease History:: Denies. - Social history:: Smoking status: Patient denies any tobacco usage or history of. Screenin:30 Abuse screen: Denies threats or abuse. Nutritional screening: No deficits noted. ap3 Tuberculosis screening: No symptoms or risk factors identified. 07:36 [facility] ED Fall Risk Assessment (Adult) History of falling in the last 3 months, mb9 including since admission No falls in past 3 months (0 pts) Confusion or Disorientation No (0 pts) Intoxicated or Sedated No (0 pts) Impaired Gait No (0 pts) Mobility Assist Device Used No (0 pt) Altered Elimination No (0 pt) Score/Fall Risk Level 0 - 2 = Low Risk Oriented to surroundings, Maintained a safe environment, Educated pt \T\ family on fall prevention, incl call for assistance when getting out of bed, Assessed \T\ reinforced patient's understanding of fall precautions. Assessment: 07:29 General: Appears uncomfortable, Behavior is calm, cooperative, appropriate for age. ap3 Pain: Complains of pain in right leg Pain currently is 9 out of 10 on a pain scale. Neuro: Level of Consciousness is awake, alert, obeys commands, Oriented to person, place, time, situation, Appropriate for age. Cardiovascular: Patient's skin is warm and dry. Respiratory: Airway is patent Respiratory effort is even, unlabored, Respiratory pattern is regular, symmetrical. Derm: redness, warmth and swelling to right lower extremity. 07:43 Reassessment: Ultrasound at bedside. mb9 09:07 Reassessment: Patient appears in no apparent distress at this time. No changes from mb9 previously documented assessment. Patient and/or family updated on plan of care and expected duration. Pain level reassessed. Patient is alert, oriented x 3, equal unlabored respirations, skin warm/dry/pink. Patient states feeling better. Patient states symptoms have improved. 09:50 Reassessment: D/C pending medication administration wait time. mb9 Vital Signs: 07:27 Resp 18; Temp 97.8; Weight 131.54 kg; Height 5 ft. 11 in. ; Pain 9/10; ll1 07:37 BP 122 / 83; mb9 07:39 Pulse 83; Resp 17; Temp 97.9; Pulse Ox 94% on R/A; ap3 09:20 BP 98 / 61; Pulse 72; Resp 18; Pulse Ox 92% on R/A; ap3 09:50 BP 116 / 76; Pulse 78; Resp 18; Pulse Ox 100% on R/A; mb9 10:29 BP 125 / 90; Pulse 71; Resp 18; Pulse Ox 100% on R/A; mb9 07:27 Body Mass Index 40.45 (131.54 kg, 180.34 cm) ll1 07:27 Pain Scale: Adult ll1 ED Course: 07:22 Patient arrived in ED. mg5 07:22 Leodan Curtis MD is Attending Physician. ec2 07:23 Omaira Roberts, RN is Primary Nurse. mb9 07:23 Arm band placed on. mb9 07:23 Placed in gown. Bed in low position. Call light in reach. Side rails up X 1. Provided mb9 Education on: press call light if needing anything. Client placed on continuous cardiac and pulse oximetry monitoring. NIBP monitoring applied. 07:28 Triage completed. ll1 07:30 lead athlete on. Pulse ox on. NIBP on. ap3 07:36 Initial lab(s) drawn, by me, sent to lab. Inserted saline lock: 20 gauge in left mb9 antecubital area, using aseptic technique. Blood collected. Flushed with 10 mL NS. 07:37 No provider procedures requiring assistance completed. mb9 08:08 Extremity Venous Uni Ltd In Process Unspecified. EDMS 10:30 IV discontinued, intact, bleeding controlled, No redness/swelling at site. Pressure mb9 dressing applied. Administered Medications: 07:38 Drug: Ketorolac IVP 15 mg IVP once Route: IVP; Site: left antecubital; ap3 08:30 Follow up: Response: No adverse reaction mb9 09:49 Drug: morphine IVP or IV 2 mg IVP once over 4 mins Route: IVP; Infused Over: 4 mins; mb9 Site: left antecubital; 10:30 Follow up: Response: No adverse reaction mb9 09:49 Drug: Trimethoprim-Sulfamethoxazole PO (160 mg-800 mg (DS) 1 tablet PO once Route: PO; mb9 10:30 Follow up: Response: No adverse reaction mb9 Medication: 07:37 VIS not applicable for this client. mb9 Outcome: 09:39 Discharge ordered by . ec2 10:30 Discharged to home ambulatory, mb9 10:30 Condition: stable 10:30 Discharge instructions given to family, Instructed on discharge instructions, follow up and referral plans. Demonstrated understanding of instructions, follow-up care, medications, Prescriptions given X 2, 10:30 Patient left the ED. mb9 Signatures: Dispatcher [employer] EDMS Mary Kay Leon RN RN ap3 Rakesh Guidry RN RN ll1 Omaira Roberts, RN RN mb9 Dina Blanco mg5 Leodan Curtis MD MD ec2
[2024-04-06] MEDS ORDERED: MORPHINE 2 MG/ML SYR ONE (09:46)
[2024-04-06] MEDS ORDERED: SMZ./TMP. 800/160 MG TABLET ONE (09:46)
[2024-04-06 11:04] VITALS: TEMP 97.9
[2024-04-06 11:07] VITALS: O2SAT 100
[2024-04-06 11:09] VITALS: BP 125/90
== END 2024-04-06 10:30 | disposition home or self-care (01) ==
LOC: ER 07:21
DX: L03.115 Cellulitis of right lower limb (principal); E87.6 Hypokalemia
CPT/HCPCS: 36415; 80048; 85025; 93971; J2270